=== PATIENT | male | born 1995 | race Caucasian/White ===

== ENCOUNTER 2016-09-10 18:50 | Inpatient (IN) | payer MEDICAID, OTHER ==
--- NOTE | 2016-09-10 19:58 | ED ---
General Adult HPI - General Chief complaint: Psychiatric Symptoms Stated complaint: EPS eval Time Seen by Provider: 09/10/16 19:25 Source: patient, family, police, RN notes reviewed Mode of arrival: ambulatory Limitations: no limitations - History of Present Illness Initial comments: Patient is a pleasant 21-year-old male presenting to the emergency department after making suicidal threats. Patient was in an argument with his mother. Patient made threats to harm himself. Patient also made threats that there may be a house fire. Patient states he never had suicidal or homicidal thoughts. Patient denies actually wanting to harm himself or others. Patient states at times he does have some mild depression. Patient does admit to having anxiety. Mother adds patient has anger problems. Patient reportedly was recently admitted for psychiatric reasons. No physical complaints. - Related Data Home Medications Medication Instructions Recorded Confirmed No Known Home Medications [No 08/21/16 09/10/16 Known Home Medications] Allergies Allergy/AdvReac Type Severity Reaction Status Date / Time No Known Allergies Allergy Verified 09/10/16 20:34 Review of Systems ROS Statement: Those systems with pertinent positive or pertinent negative responses have been documented in the HPI. ROS Other: All systems not noted in ROS Statement are negative. Constitutional: Denies: fever Eyes: Denies: eye pain ENT: Denies: ear pain Respiratory: Denies: cough Cardiovascular: Denies: chest pain Endocrine: Denies: fatigue Gastrointestinal: Denies: abdominal pain Genitourinary: Denies: dysuria Musculoskeletal: Denies: back pain Skin: Denies: rash Psychiatric: Reports: anxiety Past Medical History Past Medical History: No Reported History History of Any Multi-Drug Resistant Organisms: None Reported Past Surgical History: No Surgical Hx Reported Past Psychological History: ADD/ADHD Smoking Status: Never smoker Past Alcohol Use History: None Reported Past Drug Use History: Marijuana Additional Drug Use History / Comment(s): Patient did acid and Karlene prior to admission General Exam Limitations: no limitations General appearance: alert, in no apparent distress Head exam: Present: atraumatic Eye exam: Present: normal appearance Neck exam: Present: normal inspection Respiratory exam: Present: normal lung sounds bilaterally Cardiovascular Exam: Present: regular rate, normal rhythm GI/Abdominal exam: Present: soft. Absent: tenderness Extremities exam: Present: normal inspection Neurological exam: Present: alert Psychiatric exam: Present: normal affect, normal mood Skin exam: Absent: rash Course Vital Signs 09/10/16 18:58 Temperature 99.4 F Pulse Rate 85 Respiratory 20 Rate Blood Pressure 138/87 O2 Sat by Pulse 98 Oximetry Medical Decision Making - Medical Decision Making Patient was seen by mental health services, who will admit. Positive clinical certificate completed. - Lab Data Lab Results 09/10/16 Range/Units 19:30 Urine Opiates Screen Not Detected (NotDetected) Ur Oxycodone Screen Not Detected (NotDetected) Urine Methadone Screen Not Detected (NotDetected) Ur Propoxyphene Screen Not Detected (NotDetected) Ur Barbiturates Screen Not Detected (NotDetected) U Tricyclic Antidepress Not Detected (NotDetected) Ur Phencyclidine Scrn Not Detected (NotDetected) Ur Amphetamines Screen Not Detected (NotDetected) U Methamphetamines Scrn Not Detected (NotDetected) U Benzodiazepines Scrn Not Detected (NotDetected) Urine Cocaine Screen Not Detected (NotDetected) U Marijuana (THC) Screen Detected H (NotDetected) Disposition Clinical Impression: Depression, Suicidal ideation Disposition: TRANSFER TO PSYCH HOSP/UNIT
[2016-09-10] MEDS ORDERED: LORazepam 1 MG TAB PO STA (21:10)
[2016-09-10] MEDS ORDERED: LORazepam 2 MG/ML SYRINGE IM STA (23:56)
[2016-09-10] MEDS ORDERED: ZIPRASIDONE 20 MG VIAL IM STA (23:56)
[2016-09-11] MEDS ORDERED: MAGNESIUM HYDROXIDE 2,400 MG/10 ML CUP PO PRN (00:28)
[2016-09-11] MEDS ORDERED: MAG HYDROX/AL HYDROX/SIMETH 30 ML CUP PO PRN (00:28)
[2016-09-11] MEDS ORDERED: HALOPERIDOL LACTATE 5 MG/ML 1 ML VIAL IM PRN (00:33)
[2016-09-11] MEDS ORDERED: LORazepam 2 MG/ML SYRINGE IM PRN (00:35)
[2016-09-11 01:32] LABS: Appearance,Urine Clear (Clear); Bilirubin,Urine Negative (Negative); Glucose,Urine (UA) Negative (Negative); Ketones,Urine Negative (Negative); Leukocyte Esterase,Urine Negative (Negative); Nitrite,Urine Negative (Negative); Protein,Urine Negative (Negative); Specific Gravity,Urine 1.021 (1.001-1.035); UA Billing (MACRO vs. MICRO) CHEM; Urobilinogen,Urine <2.0 mg/dL (<2.0)
[2016-09-11 11:35] VITALS: BMI 22.6
--- NOTE | 2016-09-11 13:28 | P.HP ---
Psychiatric H&P - . H&P Date: 09/11/16 History & Physical: IDENTIFYING DATA: Mr. Holly is a 23-year-old single male readmitted to the psychiatric unit involuntarily. His mother, Brissa Styles, completed a Petition/Application for Hospitalization. HISTORY OF PRESENT ILLNESS: According to the Petition Mamadou "threatens to commit suicide. Anger outbursts. "I'm going to end my life." He threatens in a roundabout way to start a fire in the house as an electrical or gas fire. I feel he can be a danger to himself and others." I reviewed the medical record, interviewed Mr. Holly and his mother and discussed the history and treatment plan during team meeting. He was angry over this rehospitalization. He provided little information and cooperated minimally with the interview. He denied the allegations in the petition. He denied that he threatened to commit suicide or threatened to start a house fire. He denied the need for inpatient psychiatric treatment rate and requested because he has a community mental health appointment today. We discharged him on 08/26/2016 with the diagnoses of cannabis use disorder, which hallucinogen abuse, methamphetamine abuse, MDMA abuse and paranoia due to the drug abuse. His presentation to the prior admission was also involuntary where his mother was concerned about erratic behavior and threats to himself or others. He signed a deferral during this hospitalization. He did not demonstrate paranoia, agitation or threatening behavior during this hospitalization. I spoke to his mother. Brissa stated that he went to his father's house after discharge "for a day and a half" then return to her home. He stated that he was talking about being depressed and made statements such as he "could commit suicide" and nobody would miss him. She stated that he asked to do laundry at her home. She told him that he couldn't because the dryer was broken. He then talked about an electrical fire and a gas fire. He made a statement such as "this is my house and your house maybe we could have an electrical fire" ... "No one cares about me and I will kill myself." He talked about selling his "race car". He complained that his mind was racing. She stated that there was an incident where he went to the gas station, paid for gas the left the gas station without filling the gas tank. She stated that he' s been driving recklessly and speeding. One of his friends called her and complained that he was following him around the house while the friend was talking a telephone because he thought the friend was talking to the police. Mamadou's father complained that when he was at his house Mamadou could not concentrate. He was also talking about the police, the BAL and undercover. He had anger outbursts where he slammed the doors and screamed. She stated that he was always "odd" but has been worse since he started using drugs. He stated he is "not talking right" and becomes extremely angry when she tries to "talk to him". She stated he also had the heater vents in his bedroom shut tight because he thinks that people are spying on him throught the vents. He also told his mother that he believes his father is a "snitch". He denied the use of alcohol or drugs with the exception of marijuana (UDS was positive for cannabinoids). He denied experiencing auditory or visual hallucinations. He denied feeling depressed or having thoughts of or suicide. He alleged that his mother misinterpreted his statements. He denied that he had threatened suicide or threatened to set a house fire. He attributed his anger outbursts to his mother's behavior alleging that she is intrusive. PAST PSYCHIATRIC HISTORY: This is his second psychiatric hospitalization. [facility] and he has his initial psychiatric evaluation scheduled 09/11/2016. He was diagnosed with ADHD when he was a child and was treated with Strattera from approximately age [age] then Concerta from 10 until 15 or 16. He denied other contact with the mental health system. However, his mother stated that he received "counseling services" twice. The first was through [facility] about 6 years ago for problems with "incorrigibility" and anger issues. He was in counseling for about one year. The second episode was through a program called [facility]. His mother called the police when she discovered inappropriate sexual contact between Mamadou and his sister. He was 17 at the time but his sister was 13. She arranged for both Mamadou and his sister to have counseling services. He was in counseling for less than one year. CPS was not involved. PAST MEDICAL HISTORY: He has no history of medical illnesses. ALLERGIES: NO KNOWN DRUG ALLERGIES. SUBSTANCE USE HISTORY: He has a history of abuse of multiple drugs. He started smoking marijuana when he was about 16 years old. He stated that he has smoked "a lot of pot." He began using pot frequently around age 18. He smoked pot on a daily basis alleging that the marijuana produced a calming effect. He began using LSD "about 1 or 2 years ago" and he uses it sporadically. He has used MDMA twice; he last insufflated MDMA, Friday prior to admission. T He has used Adderall occasionally. He is using heroin twice (insufflation no IV injection). He began using methamphetamine about 1 or 2 years ago. His last use about 1 month ago. He was smoking methamphetamine. He has used Vicodin in the past both orally and intranasally. He was tried "mushrooms" couple times. He described a social pattern of alcohol use. He did not drink over the last week. The last time he had 5 or more drinks was "a couple weeks ago". He denied daily use of alcohol. He has not been involved in a substance abuse treatment program. Tobacco use:He states he smokes intermittently usually about 1 pack a week. FAMILY PSYCHIATRIC/SUBSTANCE USE HISTORY: According to his mother a maternal aunt and paternal grandmother have a history of schizophrenia. His father has had problems with drugs and alcohol. LEGAL HISTORY: He denied history of legal problems. SOCIAL HISTORY: He was born and raised in [facility]. He left high school in 12th grade and began working. He stated that he had fallen behind in credits because he has missed school. He last attended a "last chance" high school. He did not receive his GED. He is single and has no children. He has one younger sister. His parents are . He lives with his mother and his younger sister. MENTAL STATUS EXAM: He presented as a restless, irritable and angry 21-year-old male who looked younger than his stated age. He maintained eye contact and appeared to attend to interview. He had no distinguishing features or prominent physical abnormalities. He had an angry facial expression. He was alert and oriented to person, place and time. He was restless and agitated but able to sit during the interview. At no abnormal involuntary movements. His speech was spontaneous with increased rate and volume. He had no articulation difficulties. His affect was irritable and angry and at times intense and appropriate. He denied suicidal ideation or wishes. He denied homicidal ideation. He expresses feelings of hopelessness and helplessness regarding this involuntary hospitalization. He denied obsessions or ruminations. He denied that he is concerned about the BAL, FBI or the police. He denied ideas of reference. He was guarded and suspicious but did not express paranoid ideation during the interview. His thinking was concrete and associations were coherent. He did not demonstrate clang associations perseveration or neologisms. He denied hallucinations and did not appear to responding to internal stimuli. Global impression of intellect is average. He has no insight or understanding of her need for mental health treatment or the issues/ problems that led to this rehospitalization. STRENGTHS: Good physical health, supportive family, stable housing. WEAKNESSES: Substance use, new-onset of mental illness. IMPRESSION: He is a 21-year-old male who was readmitted to the unit with angry outbursts, paranoia, recurrence of delusional beliefs regarding legal authorities, threats of suicide and agitation. He was irritable and angry during our interview but did not expressed paranoia or delusional beliefs. The current admission does not appear related to the recent use of psychostimulants , MDMA or hallucinogenics. I suspect his presenting with a new onset of a mental illness that may include a primary mood disorder and/or a schizophrenia. PRINCIPLE DIAGNOSIS: Psychotic disorder unspecified, rule out schizophreniform disorder, rule out schizophrenia, rule out bipolar disorder, cannabis use disorder, hallucinogen use disorder. 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 Discuss a trial of an antipsychotic medication and try to obtain consent for a trial. If he refuses we'll begin an antipsychotic medication if we obtain the involuntary treatment in order. Haloperidol 5 mg by mouth/IM every 4 hours when necessary for agitation and/or lorazepam 1 mg by mouth/IM every 4 hours for agitation. Evaluate clinical status and response to treatment on a daily basis. Encourage participation in therapeutic groups and activities. Allergies Allergy/AdvReac Type Severity Reaction Status Date / Time No Known Allergies Allergy Verified 09/11/16 01:55 Vital Signs Temp 98.0 F 09/11/16 00:07 Pulse 68 09/11/16 00:07 Resp 18 09/11/16 00:07 BP 127/74 09/11/16 00:07 Pulse Ox 97 09/11/16 00:07 Intake & Output 09/10/16 09/11/16 09/11/16 18:59 06:59 18:59 Weight 71.441 kg Laboratory Last Values Urine Color Yellow 09/10/16 19:30 Urine Appearance Clear (Clear) 09/10/16 19:30 Urine pH 6.0 (5.0-8.0) 09/10/16 19:30 Ur Specific Macy 1.021 (1.001-1.035) 09/10/16 19:30 Urine Protein Negative (Negative) 09/10/16 19:30 Urine Glucose (UA) Negative (Negative) 09/10/16 19:30 Urine Ketones Negative (Negative) 09/10/16 19:30 Urine Blood Negative (Negative) 09/10/16 19:30 Urine Nitrate Negative (Negative) 09/10/16 19:30 Urine Bilirubin Negative (Negative) 09/10/16 19:30 Urine Urobilinogen <2.0 mg/dL (<2.0) 09/10/16 19:30 Ur Leukocyte Esterase Negative (Negative) 09/10/16 19:30 Urine Opiates Screen Not Detected (NotDetected) 09/10/16 19:30 Ur Oxycodone Screen Not Detected (NotDetected) 09/10/16 19:30 Urine Methadone Screen Not Detected (NotDetected) 09/10/16 19:30 Ur Propoxyphene Screen Not Detected (NotDetected) 09/10/16 19:30 Ur Barbiturates Screen Not Detected (NotDetected) 09/10/16 19:30 U Tricyclic Antidepress Not Detected (NotDetected) 09/10/16 19:30 Ur Phencyclidine Scrn Not Detected (NotDetected) 09/10/16 19:30 Ur Amphetamines Screen Not Detected (NotDetected) 09/10/16 19:30 U Methamphetamines Scrn Not Detected (NotDetected) 09/10/16 19:30 U Benzodiazepines Scrn Not Detected (NotDetected) 09/10/16 19:30 Urine Cocaine Screen Not Detected (NotDetected) 09/10/16 19:30 U Marijuana (THC) Screen Detected (NotDetected) H 09/10/16 19:30 09/11/16 10:25 09/11/16 11:50 09/11/16 13:22
[2016-09-11] MEDS: LORazepam 1 MG TAB PO PRN (19:37)
[2016-09-11] MEDS: HALOPERIDOL 5 MG TAB PO PRN (20:58)
[2016-09-12] MEDS: LORazepam 1 MG TAB PO PRN (11:35)
--- NOTE | 2016-09-12 11:40 | P.PN ---
Progress Note - Text CLINICAL PROBLEMS: He is a 21-year-old male readmitted to the unit involuntarily with agitation, anger outbursts and paranoia. 24 HOUR EVENTS: He received 5 mg of Haldol 2057 and lorazepam 1 mg by mouth at 193 yesterday for agitation. EXAMINATION: He presented as a restless and irritable 21-year-old male. He would not come into my office for the interview. He came to my door several times with various complaints. The first was the belief that "someone" had taken copies of his records from his room. He then complained to the patient compliance representative dealer that we are sharing information about his medical care with his mother. He made eye contact and appeared to attend during our conversations. He had a distressed facial expression. He was agitation but demonstrated no abnormal involuntary movements. His speech was spontaneous with increased rate and volume. His affect was irritable, angry and anxious. He denied suicidal ideation or wishes. He denied homicidal ideation. He expressed depressive cognitions including hopelessness,, hopelessness and worthlessness. He ruminated about this hospitalization, his medical records, his medical treatment and the pending involuntary hearing. His thinking was concrete but his associations appeared logical. He denied hallucinations and did not appear to be responding to internal stimuli. He has no sight or understanding of his illness. PERTINENT DATA: We have a probate hearing things scheduled for September 17 at 1: 30 PM. ASSESSMENT: He continued show restlessness, irritability, paranoia and periods of increased anger and anger dyscontrol. His symptom presentation appears more consistent with a mood disorder than a Primary Psychotic disorder. PLAN: Continue Haldol 5 mg by mouth/IM every 4 hours when necessary for agitation as well as lorazepam 1 mg by mouth/IM every 4 hours when necessary for agitation. Continue discuss treatment with an antipsychotic/mood stabilizer such as Abilify. Begin the antipsychotic/mood stabilizer if he consents or if we obtain an involuntary treatment order. Continue 15 minute checks. Encourage participation in therapeutic groups and activities. Evaluate clinical status and response to treatment on a daily basis.
[2016-09-12] MEDS: HALOPERIDOL 5 MG TAB PO PRN (16:03)
[2016-09-13] MEDS: LORazepam 1 MG TAB PO PRN ×2 (08:43→21:46)
[2016-09-13] MEDS: HALOPERIDOL 5 MG TAB PO PRN ×2 (08:43→21:46)
--- NOTE | 2016-09-13 12:01 | P.PN ---
Progress Note - Text CLINICAL PROBLEMS: He is a 21-year-old single male who presented to unit involuntarily. His mother described agitation, anger dyscontrol, suspiciousness and paranoia. His history is significant for an adolescent onset of behavioral problems. 24 HOUR EVENTS: He was disruptive in group yesterday and responded poorly to redirection by the group therapist. He was irritable, angry and preoccupied about this hospitalization. He received haloperidol 5 mg and risperidone 1 mg by mouth this morning for agitation EXAMINATION: He came to my office several times today with various complaints. He continues to deny the need for psychiatric treatment. He believes that his mother fabricated the allegations in the petition to maintain controlled over him.. He denies all the allegations of the petition. He was irritable and minimally cooperative. Heis only able to remain seated for a few minutes. His thinking was concrete but his associations appeared coherent. He has no insight or understanding as to the reason for this admission. He continues to deny the need for mental health treatment including psychotropic medications. PERTINENT DATA: His probation hearing is scheduled for 09/17/2015 ASSESSMENT: He continues to be irritable, angry and disruptive. He shows no insight or understanding of the reason for his presentation and is denying the allegations in the petition and denied the behaviors that led to this admission PLAN: Continued inpatient psychiatric hospitalization at least until the probate hearing on 09/17/2015, continue to discuss treatment with a mood stabilizing medication such as Abilify, continue haloperidol 5 mg by mouth/IM every 4 hours when necessary for agitation and/or lorazepam 1 mg by mouth/IM every 4 hours for agitation, continue to encourage appropriate participation in therapeutic groups and activities, evaluate clinical status and response to treatment on a daily basis.
[2016-09-13] MEDS ORDERED: BENZTROPINE MESYLATE 1 MG TAB PO PRN (23:03)
[2016-09-13] MEDS ORDERED: BENZTROPINE 2 MG/2 ML AMP IM PRN (23:03)
[2016-09-14] MEDS: LORazepam 1 MG TAB PO PRN ×2 (18:26→22:30)
--- NOTE | 2016-09-14 20:38 | P.PN ---
Progress Note - Text Interval history: Patient seen in cross coverage today for Dr. Hull. He had a family visit with his mom which seemed to go well. Today seems like a better day for him. He was having some difficulty with stiffness thought to be related to the Haldol with some relief with Cogentin. He has not had any Haldol today. Says he doesn't really notice much difference with the Haldol or the Ativan. He feels like if anything the Ativan makes him more alert. He does describe having had a trial of Abilify in the past and he had decreased appetite and made him very tired. He does show some interest upon further discussion with Seroquel. Mental status exam: He is alert and cooperative with the interview. He had just previously taken a shower. He mood overall seems to be improved. He denies any thoughts of harm to self or others. He denies any paranoid thoughts. He denies any hallucinations. He does not appear to responding to any internal stimuli. He does not show any agitation. His thought processes are organized. Plan: He is currently on Haldol and Ativan when necessary. We will further review his chart, we'll continue to discuss the possibility of starting Seroquel , as he has had previous trial of Abilify with side effects. Continue to cover for Dr. Hull through the weekend.
[2016-09-15] MEDS: LORazepam 1 MG TAB PO PRN ×3 (09:20→20:19)
[2016-09-15] MEDS: ACETAMINOPHEN TAB 325 MG TAB PO PRN ×2 (09:58→20:32)
--- NOTE | 2016-09-15 16:33 | P.PN ---
Progress Note - Text Interval history: Patient is seen in cross coverage today for Dr. Hull. He reports that he slept well last night. He does again relay that he had side effects with Abilify in the past it made him too sleepy. He is agreeable to a trial of Seroquel. He does not complain of any adverse psychotropic medication side effects. Mental status exam: He is alert and cooperative with the interview. His speech is fluent, not rapid or pressured. Thought processes are organized. He describes his mood is doing stable today. He denies any thoughts of harm to self or others. He denies any paranoid thoughts. He does not verbalize any hallucinations. He does not show any agitation. Plan: We will initiate low dose Seroquel 50 mg at bedtime and monitor closely for any side effects and monitor his response. Dr. Hull to resume care this patient starting tomorrow. Haldol at this time has been discontinued due to concern of extrapyramidal symptoms.
[2016-09-15] MEDS: QUEtiapine 50 MG TAB PO SCH (20:19)
--- NOTE | 2016-09-16 16:24 | P.PN ---
Progress Note - Text CLINICAL PROBLEMS: His 21-year-old single male who has a history of childhood onset conduct disorder and ADHD. He presented to unit involuntarily with a history of anger dyscontrol, agitation, threatening behavior and paranoia. 24 HOUR EVENTS: He developed neck stiffness yesterday that responded to an oral dose of Cogentin. Dr. Villela discussed alternatives to haloperidol and Kellen agreed to a trial of Seroquel. He reported improved sleep or Seroquel but asked for for Xanax for "anxiety". I declined his request due to his history of substance use problems. EXAMINATION: He presented as a tall casually dressed young male who was pleasant on approach. He maintained eye contact and attended to the interview. He had a bright but blunted facial expression. He approached me on several occasions during the day with various complaints. He remains angry over the involuntary hospitalization but alleges that he has "forgiven" his mother first actions. He now does not wish to live with his father and plans to live with his mother after discharge. He was unable to articulate plan to address conflict in a manner that would not escalate to where his mother becomes frustrated and calls the police. His speech was spontaneous with normal rate, rhythm and volume. His affect was labile. He denied suicidal ideation or wishes. He denied homicidal ideation. He did not express paranoid ideation. His thinking was concrete but his associations were coherent and logical. He denied hallucinations. PERTINENT DATA: He requested and received 1 mg of lorazepam at 1023 this morning for complaints of anxiety. ASSESSMENT: He continues to have mood lability, impulsiveness and periods of uncontrolled anger. There is no evidence of suicidality, homicidality, paranoia or other psychotic symptoms. PLAN: He has a probate hearing on 09/17/2016. We were asked for a 60/90 day combined treatment order. Continue Seroquel 50 mg at bedtime and titrated according to tolerance and side effects. Defer prescription of narcotic medications due to history of abuse. Continue to encourage participation in therapeutic groups and activities. Evaluate clinical status and response to treatment on a daily basis.
[2016-09-16] MEDS: QUEtiapine 50 MG TAB PO SCH (21:32)
[2016-09-17] MEDS: LORazepam 1 MG TAB PO PRN (08:21)
[2016-09-17] MEDS ORDERED: TETRAHYDROZOLINE 0.05% OPHTH DROPS 15 ML BTL BOTH EYES PRN (12:54)
[2016-09-17] MEDS ORDERED: QUEtiapine 25 MG TAB PO PRN (16:13)
--- NOTE | 2016-09-17 16:17 | P.PN ---
Progress Note - Text CLINICAL PROBLEMS: Mamadou was anxious regarding the probate hearing later today. He into my office several times today with various complaints and concerns. He is preoccupied about discharge and wishes to leave after the probate hearing. He asked me to discontinue Ativan and tentatively agreed to take a low dose of quetiapine for anxiety or agitation. 24 HOUR EVENTS: He slept only 2 hours last night. He has not displayed agitation, aggression or disruptive behavior EXAMINATION: He presented as a tall casually groomed young male who was pleasant on approach. He maintained eye contact and attended to the interview. He had a bright facial expression. He showed no abnormality of psychomotor activity. His speech was spontaneous with normal rate, rhythm and volume. His affect was anxious but stable and appropriate. He denied suicidal ideation or wishes. He denied ideas reference and did not express paranoid ideation. His thinking is concrete but his associations are coherent and goal directed. She denied hallucinations and did not appear to responding to internal stimuli. PERTINENT DATA: He had a probate hearing this afternoon. I requested a 60/90 day treatment order ASSESSMENT: She is much improved from admission with marked decrease of irritability, agitation and anger. He is denying side effects to the 50 mg dose of quetiapine but is reluctant regarding further increases. PLAN: Continue Seroquel 50 mg at bedtime, discontinue oral lorazepam and prescribed Seroquel 25 mg by mouth twice a day when necessary for agitation or anxiety.
[2016-09-17] MEDS: ACETAMINOPHEN TAB 325 MG TAB PO PRN (16:18)
[2016-09-17] MEDS: QUEtiapine 50 MG TAB PO SCH (20:20)
[2016-09-18] MEDS ORDERED: QUEtiapine 100 MG TAB PO SCH (15:23)
--- NOTE | 2016-09-18 15:30 | P.PN ---
Progress Note - Text CLINICAL PROBLEMS: He had a probate hearing on 09/17/2016 and received a 60/90 day combine treatment order. He presented to the unit involuntarily with loss of control of her anger and behavioral dyscontrol. He came to my office this morning demanding to be discharged. He continued to maintain there is no reason for him to be hospitalized. He alleged that his mother "lied" on the petition. He inquired about a referral for a medical marijuana card because he wished to have a "natural" treatment rather than take the prescribed psychiatric medications. He was evasive about continuing to take prescribed psychotropic medications. However, he assured me that he would follow-up with [facility]. He accuses "us" of interfering with his treatment because the day of admission he had an appointment at [facility]. When I would not agree to an immediate discharge he asked how he can have "another doctor". He became increasingly agitated and angry when I declined his quest to be discharged. His anger increased to where I felt uncomfortable being alone with him in my office and asked him to leave. He placed his foot in the doorway so that I could not close to door. 24 HOUR EVENTS: He slept 4 hours last night EXAMINATION: He presented as a casually groomed tall young male who was initially pleasant on approach. He became increasingly demanding and hostile to where I ended the interview. His facial expression change with his affect. He showed no abnormality of psychomotor behavior. His speech was rapid. His affect was labile, intense and appropriate. He denied suicidal ideation, wishes or homicidal ideation. He perseverated on discharge and the need for use of marijuana. His thinking was concrete and perseverative. He denied hallucinations and did not receive her to be responding to internal stimuli. PERTINENT DATA: He did not require when necessary quetiapine over the last 24 hours. ASSESSMENT: He continues to be labile, oppositional, irritable, and demanding. PLAN: He is not appropriate for discharge at this time. Increase Seroquel to 100 mg at bedtime, continue Seroquel 25 5 mg by mouth twice a day when necessary for agitation or anxiety, evaluate his clinical status response to treatment on a daily basis, encourage participation in therapeutic groups and activities.
[2016-09-18] MEDS: ACETAMINOPHEN TAB 325 MG TAB PO PRN (21:14)
[2016-09-19 07:02] VITALS: RESP 12; TEMP 97.5
[2016-09-19] MEDS: ACETAMINOPHEN TAB 325 MG TAB PO PRN ×2 (09:22→21:01)
--- NOTE | 2016-09-19 17:11 | P.PN ---
Progress Note - Text CLINICAL PROBLEMS: He is a 21-year-old man who has a history of conduct disorder and ADHD as a child. This is his second psychiatric hospitalization his adult; the first was related to abuse of hallucinogens. He presented with irritability, oppositional behavior and purported dresses suicide. He received a 60/90 day combined treatment order and 09/17/2016. 24 HOUR EVENTS: He slept 4 hours last night. He denied side effects to the increased dose of Seroquel. EXAMINATION: He presented as an irritable, oppositional and demanding 21-year- old male. He repeatedly requested to be discharged and demanded an explanation as to why he would not be discharged today. When I first declined his request (to be discharged) he stood up and walked out of the interview room. He then demanded that we speak in the hallways. When a nurses aid walked by he asked the aid to witness the conversation. He then accused this group underwriter of wanting to talk in the hallways. When we returned to the interview room he was irritable and oppositional. He demanded to know his diagnosis and when I explained the diagnoses he interrupted. He denied that he has a history of drug use. He then would not answer further questions and demanded that I speak about my drug use. He interrupted me and talked over my replies to his questions. PERTINENT DATA: He participates minimally in therapeutic groups and activities. Therapy staff report that he is restless, irritable and has difficulty focusing. ASSESSMENT: He is compliant with prescribed medication but is not sleeping more than 4 hours per night. His behavior appears more consistent with a chronic oppositional defiant disorder rather than a mood variant. PLAN: Increase Seroquel to 200 mg at bedtime. If he tolerates the increase, consider discharge home with [facility] aftercare.
[2016-09-19] MEDS ORDERED: QUEtiapine 200 MG TAB PO SCH (21:00)
[2016-09-20 07:07] VITALS: BP 131/67; PULSE 51
[2016-09-20] MEDS: ACETAMINOPHEN TAB 325 MG TAB PO PRN (13:03)
--- NOTE | 2016-09-20 15:01 | P.DS ---
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 Holly is a 23-year-old single male readmitted to the psychiatric unit involuntarily. His mother, Brissa Styles, completed a Petition/Application for Hospitalization. HISTORY OF PRESENT ILLNESS: According to the Petition Mamadou "threatens to commit suicide. Anger outbursts. "I'm going to end my life." He threatens in a roundabout way to start a fire in the house as an electrical or gas fire. I feel he can be a danger to himself and others." I reviewed the medical record, interviewed Mr. Holly and his mother and discussed the history and treatment plan during team meeting. He was angry over this rehospitalization. He provided little information and cooperated minimally with the interview. He denied the allegations in the petition. He denied that he threatened to commit suicide or threatened to start a house fire. He denied the need for inpatient psychiatric treatment rate and requested because he has a community mental health appointment today. We discharged him on 08/26/2016 with the diagnoses of cannabis use disorder, which hallucinogen abuse, methamphetamine abuse, MDMA abuse and paranoia due to the drug abuse. His presentation to the prior admission was also involuntary where his mother was concerned about erratic behavior and threats to himself or others. He signed a deferral during this hospitalization. He did not demonstrate paranoia, agitation or threatening behavior during this hospitalization. I spoke to his mother. Brissa stated that he went to his father's house after discharge "for a day and a half" then return to her home. He stated that he was talking about being depressed and made statements such as he "could commit suicide" and nobody would miss him. She stated that he asked to do laundry at her home. She told him that he couldn't because the dryer was broken. He then talked about an electrical fire and a gas fire. He made a statement such as "this is my house and your house maybe we could have an electrical fire" ... "No one cares about me and I will kill myself." He talked about selling his "race car". He complained that his mind was racing. She stated that there was an incident where he went to the gas station, paid for gas the left the gas station without filling the gas tank. She stated that he' s been driving recklessly and speeding. One of his friends called her and complained that he was following him around the house while the friend was talking a telephone because he thought the friend was talking to the police. aMmadou's father complained that when he was at his house Mamadou could not concentrate. He was also talking about the police, the BAL and undercover. He had anger outbursts where he slammed the doors and screamed. She stated that he was always "odd" but has been worse since he started using drugs. He stated he is "not talking right" and becomes extremely angry when she tries to "talk to him". She stated he also had the heater vents in his bedroom shut tight because he thinks that people are spying on him throught the vents. He also told his mother that he believes his father is a "snitch". He denied the use of alcohol or drugs with the exception of marijuana (UDS was positive for cannabinoids). He denied experiencing auditory or visual hallucinations. He denied feeling depressed or having thoughts of or suicide. He alleged that his mother misinterpreted his statements. He denied that he had threatened suicide or threatened to set a house fire. He attributed his anger outbursts to his mother's behavior alleging that she is intrusive. PAST PSYCHIATRIC HISTORY: This is his second psychiatric hospitalization. We referred him to [facility] for aftercare and he has his initial psychiatric evaluation scheduled 09/11/2016. He was diagnosed with ADHD when he was a child and was treated with Strattera from approximately age [age] then Concerta from 10 until 15 or 16. He denied other contact with the mental health system. However, his mother stated that he received "counseling services" twice. The first was through [facility] about 6 years ago for problems with "incorrigibility" and anger issues. He was in counseling for about one year. The second episode was through a program called [facility]. His mother called the police when she discovered inappropriate sexual contact between Mamadou and his sister. He was 17 at the time but his sister was 13. She arranged for both Mamadou and his sister to have counseling services. He was in counseling for less than one year. CPS was not involved. HOSPITAL COURSE: We admitted him to the psychiatric unit under care of this law writer. We provided a biopsychosocial assessment. The oracle adf consultant absorption plant operator helper completed the physical examination and medical history. He would not consent to a voluntary admission or take a psychotropic medications for his agitation and aggressive behavior. We obtained a 60/90 day combined involuntary treatment order on 09/17/2016 and started Seroquel 50 mg at bedtime. He participated intermittently in therapeutic groups and activities. He was angry and oppositional during much of the hospitalization. During individual sessions he was angry, demanding and would not engage in a reciprocal conversation. He appeared suspicious that time requesting that staff be present as witnesses during one-to-one meetings. We increased Seroquel at 200 mg at bedtime and observed a slight decrease in his anger and an improvement in his sleep. However, he made it clear that he has no plans to continue with this medication after discharge. He inquired about our support for obtaining a "medical marijuana card ". He denied a history of substance abuse and accuse us of fabricating this story. At the time of discharge she denied thoughts of or suicide. He overtly agreed to follow-up with [facility]. He will live with either his mother or father after discharge. Patient Condition at Discharge: Fair Plan - Discharge Summary New Discharge Prescriptions: QUEtiapine [SEROquel] 200 mg PO HS #30 tab Discharge Medication List QUEtiapine [SEROquel] 200 mg PO HS #30 tab 09/20/16 [Rx] [facility] up [facility]Ref[facility] - 09/26/16 2:00 pm (Araseli Guerrero) [facility] [place] [facility] [Outside] - 09/24/16 10:00 am (Shanti Peñaloza) Kip Flowers DO [Primary Care Provider] - 1-2 days Patient Instructions/Handouts: Depression (DC), Suicide Prevention for Adults ( DC) Activity/Diet/Wound Care/Special Instructions: No alcohol or street drugs. Take medication as prescribed. Notify the crisis line or your care provider if symptoms worsen. Crisis line no. . Regular diet. Activity as tolerated. Discharge Disposition: HOME SELF-CARE
== END 2016-09-20 13:34 | disposition home or self-care (01) | DRG 897 ==
LOC: EC 18:50 → 3MHU 23:55
PROVIDERS: ADMIT Psychiatry & Neurology Psychiatry; ATTEND Psychiatry & Neurology Psychiatry
DX: F16.10 Hallucinogen abuse, uncomplicated (principal); R45.851 Suicidal ideations; F32.9 Major depressive disorder, single episode, unspecified; F15.10 Other stimulant abuse, uncomplicated; F12.20 Cannabis dependence, uncomplicated; F41.9 Anxiety disorder, unspecified; F91.3 Oppositional defiant disorder; Z81.8 Family history of other mental and behavioral disorders; Z87.891 Personal history of nicotine dependence
CPT/HCPCS: 80306; 81003; 82075; 96372; 99285

== ENCOUNTER 2017-03-12 14:17 | Inpatient (IN) | payer MEDICAID, OTHER ==
--- NOTE | 2017-03-12 14:56 | ED ---
General Adult HPI - General Chief complaint: Psychiatric Symptoms Stated complaint: mental health Time Seen by Provider: 03/12/17 14:27 Source: patient, EMS, RN notes reviewed Mode of arrival: EMS Limitations: no limitations - History of Present Illness Initial comments: Patient is an agitated 21-year-old male presenting to the emergency department by police and EMS. Patient is agitated. Patient was restrained. Patient has Court order. Patient admits to not taking medication stating and does not work for him. Patient is unclear if he is court ordered to take medication. Patient admits to having problems with his sister. Patient denies suicidal or homicidal thoughts. Patient denies hallucinations. No alcohol or street drug use other than reported medical marijuana. Patient denies any physical complaints. Tetanus immunization is less than 10 years ago. Patient denies any significant injury. - Related Data Home Medications Medication Instructions Recorded Confirmed Paliperidone [Invega] 3 mg PO DAILY 03/12/17 03/12/17 Allergies Allergy/AdvReac Type Severity Reaction Status Date / Time haloperidol [From Haldol] AdvReac Severe Unknown Verified 03/12/17 14:36 Review of Systems ROS Statement: Those systems with pertinent positive or pertinent negative responses have been documented in the HPI. ROS Other: All systems not noted in ROS Statement are negative. Constitutional: Denies: fever Eyes: Denies: eye pain ENT: Denies: ear pain Respiratory: Denies: cough Cardiovascular: Denies: chest pain Endocrine: Denies: fatigue Gastrointestinal: Denies: abdominal pain Genitourinary: Denies: dysuria Musculoskeletal: Denies: back pain Skin: Denies: rash Neurological: Denies: headache Past Medical History Past Medical History: No Reported History History of Any Multi-Drug Resistant Organisms: None Reported Past Surgical History: No Surgical Hx Reported Past Anesthesia/Blood Transfusion Reactions: No Reported Reaction Past Psychological History: ADD/ADHD, Schizophrenia Smoking Status: Never smoker Past Alcohol Use History: None Reported Past Drug Use History: Marijuana General Exam Limitations: no limitations General appearance: alert, in no apparent distress Head exam: Present: atraumatic Eye exam: Present: normal appearance, PERRL ENT exam: Present: normal oropharynx Neck exam: Present: normal inspection Respiratory exam: Present: normal lung sounds bilaterally Cardiovascular Exam: Present: regular rate, normal rhythm GI/Abdominal exam: Present: soft. Absent: tenderness Extremities exam: Present: normal inspection Neurological exam: Present: alert, CN II-XII intact. Absent: motor sensory deficit Psychiatric exam: Present: agitated Skin exam: Present: abrasion Course Vital Signs 03/12/17 03/12/17 14:31 19:57 Temperature 97.3 F L Pulse Rate 101 H 99 Respiratory 18 18 Rate Blood Pressure 168/84 160/80 O2 Sat by Pulse 96 95 Oximetry Procedures - Restraint - Face to Face Restraint Occurrence 1 Patient's Immediate Situation: Endangers self safety, Endangers others' safety, Endangers staff safety, Violent behavior Patient's Reaction to the Intervention: Angry Patient's Medical & Behavioral Condition: Awake, Alert, Follows directions Need to Continue or Terminate Restraint or Seclusion: Continue Face to Face Eval of Restraint Date: 03/12/17 Face to Face Eval of Restraint Time: 14:54 Medical Decision Making - Lab Data Result diagrams: 03/13/17 07:22 03/13/17 07:22 Lab Results 03/12/17 Range/Units 17:00 Urine Opiates Screen Not Detected (NotDetected) Ur Oxycodone Screen Not Detected (NotDetected) Urine Methadone Screen Not Detected (NotDetected) Ur Propoxyphene Screen Not Detected (NotDetected) Ur Barbiturates Screen Not Detected (NotDetected) U Tricyclic Antidepress Not Detected (NotDetected) Ur Phencyclidine Scrn Not Detected (NotDetected) Ur Amphetamines Screen Not Detected (NotDetected) U Methamphetamines Scrn Not Detected (NotDetected) U Benzodiazepines Scrn Not Detected (NotDetected) Urine Cocaine Screen Not Detected (NotDetected) U Marijuana (THC) Screen Detected H (NotDetected) Disposition Clinical Impression: Depression, Psychosis Disposition: TRANSFER TO PSYCH HOSP/UNIT
[2017-03-12] MEDS ORDERED: ZIPRASIDONE 20 MG VIAL IM STA (18:13)
[2017-03-12] MEDS ORDERED: MAGNESIUM HYDROXIDE 2,400 MG/10 ML CUP PO PRN (19:40)
[2017-03-12] MEDS ORDERED: MAG HYDROX/AL HYDROX/SIMETH 30 ML CUP PO PRN (19:40)
[2017-03-12] MEDS ORDERED: ZIPRASIDONE 20 MG VIAL IM PRN (19:40)
[2017-03-13 07:42] LABS: Basophils # (A) 0.1 k/uL (0-0.2); Basophils % (A) 2 %; CHCM 35.3; Eosinophils # (A) 0.3 k/uL (0-0.7); Eosinophils % (A) 4 %; HCT 46.6 % (39.0-53.0); HDW 2.68; HGB 16.6 gm/dL (13.0-17.5); Luc # (Auto) 0.18; Luc % (Auto) 3; Lymphocytes # (A) 1.7 k/uL (1.0-4.8); Lymphocytes % (A) 25 %; MCH 31.4 pg (25.0-35.0); MCHC 35.7 g/dL (31.0-37.0); MCV 88.1 fL (80.0-100.0); Mean Platelet Volume 7.4; Monocytes # (A) 0.6 k/uL (0-1.0); Monocytes % (A) 9 %; Neutrophils % (A) 59 %; RBC 5.28 m/uL (4.30-5.90); RDW 12.7 % (11.5-15.5); WBC 6.8 k/uL (4.0-11.0); WBC (Perox) 6.39
[2017-03-13 08:06] LABS: Anion Gap 10 mmol/L; Blood Urea Nitrogen 19 mg/dL (9-20); Calcium 9.6 mg/dL (8.4-10.2); Carbon Dioxide 27 mmol/L (22-30); Chloride 104 mmol/L (98-107); Glucose 76 mg/dL (74-99); Non-African American GFR(MDRD) >60 (>60 ml/min/1.73 sqM); Potassium 4.4 mmol/L (3.5-5.1); Sodium 141 mmol/L (137-145)
[2017-03-13] MEDS ORDERED: PALIPERIDONE 3 MG TAB.ER.24 PO SCH (09:00)
[2017-03-13] MEDS: ACETAMINOPHEN TAB 325 MG TAB PO PRN ×2 (09:05→20:31)
[2017-03-13] MEDS: NICOTINE 14MG/24HR PATCH TRANSDERM SCH (09:06)
--- NOTE | 2017-03-13 18:14 | HP ---
DATE OF SERVICE: 03/13/2017 IDENTIFYING DATA: This patient is a 21-year-old single male who was admitted to the mental health unit through the emergency room as he was brought in on an existing court order. He was brought into the hospital for aggressiveness and presumed symptoms of psychosis. HISTORY OF PRESENT ILLNESS: The patient has a pre-existing diagnosis with [facility] of schizoaffective disorder. He has been treated on this unit twice before. During his initial hospitalization here, it was presumed that his psychosis was drug-induced. With his second hospitalization there was consideration of a primary psychotic etiology. The patient is currently on a one-year court order for treatment. Apparently he has been noncompliant with his Invega, he thinks for greater than 2 months, but he has some difficulty specifying a time line. The previous psychiatric evaluation notes were reviewed. I reviewed documentation regarding the ER assessment yesterday. Apparently the patient called 911 twice, as the patient demonstrated aggressiveness. They found a machete in his room and they reported that he was appearing paranoid. The patient states today his mood is "just fine." He states he has no problems with sleep, appetite or energy. He states he does not need to be here and he does not need medication. He feels he just needs to take marijuana to be calm and is trying to find a physician to give him his medical card. As we talk more, he does spontaneously discuss his suspiciousness of authorities. He states that they are watching him, as apparently "I am a big bad criminal." He states he should just go to the senior software development engineer's department and register himself and pay $50. He then become angry that he would be forced to pay $50 when he needs that money for other things. In terms of having a machete in his room, he states he is a "connoisseur of knives." He reports that he kept the machete close to him in case somebody broke in or he needed it for self- defense. He was guarded when asked questions about having the machete. He is reporting no suicidal or homicidal thoughts. He reports no recognition of being irritable yesterday. He states there was a verbal altercation with his sister, as he felt she was keeping his property in the trunk of his mother's car inappropriately and he wanted it. He states he does listen to music and sat down calmly, and to his surprise the police arrived at the home. It is unclear if he has had hypomanic or manic episodes. He is endorsing no depressive symptoms at this time. He reports no access to firearms. PAST PSYCHIATRIC HISTORY: This is this third psychiatric admission. The first was in August of 2016 and the second was in September of 2016, both under the care of Dr. Hull. He endorses no history of suicide attempts. He was placed on Seroquel, and this was changed to Invega. He was only on 3 mg, and this was being used orally despite having a court order for treatment. He had previously worked with [employer]. He admits that he has missed some appointments, as he has arrived late to [facility]. PAST MEDICAL HISTORY: None reported. ALLERGIES: NO KNOWN DRUG ALLERGIES. CHEMICAL DEPENDENCY HISTORY: He reports he uses marijuana regularly. It was positive in his urine drug screen. He has a history of intermittently using LSD , ecstasy, Adderall, heroin, Gotham, methamphetamine and mushrooms sporadically. He reports no recent alcohol use but previously described his use as being social. He has never been placed in residential treatment for chemical dependency reasons. Marijuana started at age 16. FAMILY PSYCHIATRIC HISTORY: A maternal aunt and paternal grandmother were known to have schizophrenia. No suicides in the family. FAMILY CHEMICAL DEPENDENCY HISTORY: His father was known to have an alcohol and illicit drug use issue. SOCIAL HISTORY: The patient is 21 years old. He is single. He has no children. He resides with his mother and younger sister. He went as far as 12th grade but did not graduate. No history of experience. He has worked numerous jobs on a short-term basis. He has no employment at this time; no income. He was originally born and raised in the [facility]. LEGAL HISTORY: No history of arrests. ABUSE HISTORY: None reported. MENTAL STATUS EXAM: The patient is a male appearing his stated age. He is seated calmly. He is dressed in his own clothing. Eye contact was appropriate. He does have spontaneous speech. He does answer questions. He reports his mood is "just fine." Affect is blunted. He endorses no auditory or visual hallucinations, but he does endorse paranoid and persecutory thoughts, mainly focusing on law enforcement. He endorses a general sense of being unsafe and feels that at times he is persecuted by family members. He reports no suicidal or homicidal ideation. He reports no thought or intent of harming family members. He demonstrates no verbal or physical aggressiveness during the session. He was redirectable. He does become more agitated when discussing the need for medication and why he was admitted, but I am able to direct him away from that to another topic when needed. He is oriented to person, place and dates. He is able to names the days of the week. Thought process could be tangential at times. There was no flight of ideas or loose associations. STRENGTHS: Housing, family support. WEAKNESSES: Medication noncompliance, use of marijuana. IMPRESSIONS: 1. Psychosis, unspecified. Rule out schizophrenia. Rule out schizoaffective disorder, cannabis use disorder. 2. Lack of income. 3. Noncompliance with medication. PLAN: The patient has been admitted to the mental health unit on an existing treatment order. We reviewed his presenting symptoms. We will continue the Invega but will titrate to 6 mg daily. We will watch for clinical effect and will consider initiating Invega Sustenna. He will be seen by his primary care physician for a routine history and physical exam. Vital signs reviewed. Lab results reviewed. Social Work will meet with the patient to complete a psychosocial assessment. We will involve family in his treatment and discharge planning as he will allow. We will provide reality orientation when possible He is encouraged to participate in the milieu. SHARRON
--- NOTE | 2017-03-13 19:02 | P.CONS ---
History of Present Illness - Reason for Consult Consult date: 03/13/17 Medical management in a patient admitted to the psych floor - History of Present Illness Is a 21-year-old gentleman that is admitted to the inpatient psych unit after failing to take his medication. Patient has a court petition Patient denies having any headaches blurry vision nausea vomiting chest pain difficulty breathing abdominal pain diarrhea urinary urgency or frequency Patient has having any focal motor or sensory deficits denies using any illicit drugs in the recent times States that the he is medically clear and he would like to go home Denies having any suicidal or homicidal ideations apparently had to be restrained overnight Review of Systems All systems: negative (Noted in HPI) Past Medical History Past Medical History: No Reported History History of Any Multi-Drug Resistant Organisms: None Reported Past Surgical History: No Surgical Hx Reported Past Anesthesia/Blood Transfusion Reactions: No Reported Reaction Past Psychological History: ADD/ADHD, Schizophrenia Smoking Status: Never smoker Past Alcohol Use History: None Reported Past Drug Use History: Marijuana Medications and Allergies Home Medications Medication Instructions Recorded Confirmed Type Paliperidone [Invega] 3 mg PO DAILY 03/12/17 03/12/17 History Allergies Allergy/AdvReac Type Severity Reaction Status Date / Time haloperidol [From Haldol] AdvReac Severe Unknown Verified 03/12/17 14:36 Physical Exam Vitals: Vital Signs Temp Pulse Pulse Pulse Resp BP BP 03/13/17 11:06 62 18 03/12/17 22:44 96.7 F L 68 16 118/58 03/12/17 19:57 97.3 F L 99 18 160/80 BP Pulse Ox 03/13/17 11:06 133/72 03/12/17 22:44 97 03/12/17 19:57 95 Physical exam Gen. appearance oriented 3 in no distress Neck is supple no JVD Lungs good air entry clear to auscultation no rhonchi or wheezing Heart S1-S2 heard regular rate and rhythm no murmurs appreciated Abdomen is soft nontender no organomegaly bowel sounds are intact Neurologically cranial nerves II-12 grossly intact no focal motor or sensory deficits noted Skin no abnormalities appreciated Results CBC & Chem 7: 03/13/17 07:22 03/13/17 07:22 Assessment and Plan Plan: #1 schizophrenia noncompliant with medications Plan Thank you for the consultation patient is medically stable no further investigations are recommended We'll follow patient intermittently with you please call with any questions or concerns
[2017-03-14] MEDS: PALIPERIDONE 6 MG TAB.ER.24 PO SCH (09:37)
[2017-03-14] MEDS: NICOTINE 14MG/24HR PATCH TRANSDERM SCH (09:37)
--- NOTE | 2017-03-14 09:58 | P.PN ---
Progress Note - Text Interval history: The patient is found in the hallway he follows me to an interview room. He reports his mood is fine. He inquires as to when he can be discharged. He states that if I talk to any of his friends they will state he is doing fine. We discussed that we titrated the Invega to 6 mg daily and he is agreeable at this time. He reports attending groups he states he ate breakfast this morning. He is endorsing no symptoms. Mental status exam: The patient is alert he stressors unclothing eye contact is appropriate. He reports his mood is "fine". Affect is constricted. He is endorsing no auditory or visual hallucinations he endorses no specific delusions. It is still evident that he continues to experience paranoid persecutory thoughts. He continues to lack insight into his symptoms of psychosis and how they have resulted in this hospitalization. He reports no suicidal or homicidal ideation. He is able to remain seated in the chair he demonstrates no verbal or physical aggressiveness. He is oriented to person place and date. He has spontaneous speech that is nonpressured. There is some mild disorganization of thought at times there is no flight of ideas or loose associations. Plan: The patient will continue on the invega 6 mg daily. We will continue to monitor him for safety. We will look for and attenuation of his psychosis prior to discharge. Vital signs reviewed. He is encouraged to participate in the milieu. I expect he may be appropriate for discharge sometime next week depending on his clinical progress.
[2017-03-15] MEDS: PALIPERIDONE 6 MG TAB.ER.24 PO SCH (12:35)
[2017-03-15] MEDS: NICOTINE 14MG/24HR PATCH TRANSDERM SCH (12:35)
[2017-03-15] MEDS: LORazepam 1 MG TAB PO PRN (12:54)
--- NOTE | 2017-03-15 13:58 | P.PN ---
Progress Note - Text Weekend coverage for Dr. Quinn. INTERVERAL HISTORY: Review of record, discussed with nursing staff, met with patient. Patient seated in the hallway asked him if he would come to the office, "I was can ask if you again and meet with me". Patient reports that he is doing fine,then begins to go into a monologue that Invega has never helped him, that he took it for 30 days and wants to see if there is anything else that he can take. Goes on w/o pause to state that he has ADHD, his whole life,stopped taking med, concerta, instead using weed that seemed to help with his ADHD. Now wants Vivyanse. MENTAL STATUS EXAM: Alert and oriented 3, pleasant, cooperative. Speech normal volume, slight increased rate and although not pressured speech, there was a push. Preoccupied about medication for ADHD, minimizing current medications. There is no auditory or visual hallucinations reported, nor was there any evidence that he was responding to internal stimuli. Mood neutral, affect constricted. No report of delusions. No suicidal or homicidal ideation. Plan: continue with inpatient psychiatric hospitalization, for safety and treatment purposes. Suicide precautions and every 15 minute checks. Continue current medication. Monitor for clinical progress
[2017-03-16] MEDS: PALIPERIDONE 6 MG TAB.ER.24 PO SCH (08:34)
[2017-03-16] MEDS: LORazepam 1 MG TAB PO PRN ×2 (08:34→18:39)
[2017-03-16] MEDS: NICOTINE 14MG/24HR PATCH TRANSDERM SCH (08:34)
--- NOTE | 2017-03-16 15:18 | P.PN ---
Progress Note - Text Weekend coverage for Dr. Quinn. INTERVERAL HISTORY: Review of record, discussed with nursing staff, met with patient. Staff noted he has been less visible on unit since another female patient discharged. Patient in bed, reports his family meeting was "bumpy", SW reported it was very difficult, patient using foul language to mother and SW. Patient requesting seroquel for sleep tonight. Suggested he not sleep in day and he would have a good chance of sleeping tonight. Patient asks when he might be leaving, if we could change his medication. Suggested he speak to Dr Quinn tomorrow that medications need time to take effect and DR Giles should make that decision with him. Patient agreed to trial of trazodone but instead will give Benadryl due to priaprism. MENTAL STATUS EXAM: Alert and oriented 3, pleasant, cooperative. Speech normal volume, rate and production. There is no auditory or visual hallucinations reported, nor was there any evidence that he was responding to internal stimuli. Mood neutral, affect constricted. No report of delusions. No suicidal or homicidal ideation. Plan: continue with inpatient psychiatric hospitalization, for safety and treatment purposes. Suicide precautions and every 15 minute checks. Benadryl prn insomnia Continue current medication. Monitor for clinical progress
[2017-03-16] MEDS ORDERED: diphenhydrAMINE 25 MG CAP PO PRN (15:19)
[2017-03-17] MEDS: NICOTINE 14MG/24HR PATCH TRANSDERM SCH (08:15)
--- NOTE | 2017-03-17 09:07 | P.PN ---
Progress Note - Text Interval history: The patient is found in the hallway he approaches me to speak this morning. It appears his family meeting went poorly the social work notes were reviewed. His mother was encouraged to get guardianship. The patient states that the meeting did agitate him but he felt some parts of it went okay. We discussed his medication he continues to feel he does not need one but he is willing to comply. He discussed the likelihood of initiating Invega Sustenna. He does offer some resistance to the idea of getting shots. There is however an ongoing concern he will discontinue his medication upon discharge. He states he signed a paper with Dr. Fine saying he does not have to take medication so long as he does drug testing. Mental status exam: The patient is a thin male he is dressed in his own clothing eye contact is appropriate. He is mildly agitated and defensive but demonstrates no verbal or physical aggressiveness during the session. He reports a frustrated mood. He is endorsing no symptoms of psychosis but some delusional thought persists. Insight and judgment limited. No abnormal involuntary movements observed. He does not appear hypomanic or manic but can be circumstantial at times. He is reporting no suicidal or homicidal ideation. Plan: The patient will continue on the Invega we will increase to 9 mg daily. We discussed the likelihood of initiating Invega Sustenna during the hospitalization. We will continue to monitor him for safety. He is encouraged to continue participating in the milieu. We will continue to involve his mother and discharge planning.
[2017-03-17] MEDS: PALIPERIDONE 6 MG TAB.ER.24 PO SCH (09:19)
[2017-03-17] MEDS: PALIPERIDONE 3 MG TAB.ER.24 PO SCH (09:23)
[2017-03-17] MEDS: LORazepam 1 MG TAB PO PRN (20:04)
[2017-03-17] MEDS: DOXEPIN 10 MG CAP PO SCH (21:48)
[2017-03-18] MEDS: NICOTINE 14MG/24HR PATCH TRANSDERM SCH (08:34)
[2017-03-18] MEDS: PALIPERIDONE 3 MG TAB.ER.24 PO SCH (08:35)
[2017-03-18] MEDS: LORazepam 1 MG TAB PO PRN ×2 (08:35→20:57)
--- NOTE | 2017-03-18 11:28 | P.PN ---
Progress Note - Text Interval history: The patient is found in his room he does not wish to get up and speak with me in an interview room. He reports his plan is to stay in bed all day and he doesn't want to get out until his discharge. He indicates he has not been showering and again states he will not do so until he is discharged. He is encouraged to demonstrate participation in the milieu and inability to care for himself. The Invega was increased he is reporting no side effects from the medication. The patient is more agitated today as he demands to be discharged. He is partially cooperative with the interview. Mental status exam: The patient is alert he is dressed in his own clothing there is a follow body odor noted when speaking to him in his room. Eye contact is poor he is lying in bed covered with a blanket. Affect is more irritable. He lacks insight into the reason for his admission and his behavior during the family meeting recently. He is intentionally endorsing no symptoms trying to facilitate a discharge. He demonstrates no physical aggressiveness but is more verbally aggressive during a second conversation with him as he approached my office. He remains oriented. Plan: The patient will continue on the Invega 9 mg. We will allow this time to demonstrate efficacy. We will monitor him for safety. He is encouraged to attend to his ADLs and participate in the milieu. If he were to demonstrate sufficient improvement over the next several days and we are able to use the Invega Sustenna he may be appropriate for discharge by the end of the week. Vital signs reviewed.
[2017-03-18 12:56] VITALS: BMI 22.5
[2017-03-18] MEDS: DOXEPIN 10 MG CAP PO SCH (20:55)
[2017-03-19] MEDS: NICOTINE 14MG/24HR PATCH TRANSDERM SCH ×2 (08:40→08:47)
[2017-03-19] MEDS: PALIPERIDONE 3 MG TAB.ER.24 PO SCH (08:40)
[2017-03-19] MEDS: LORazepam 1 MG TAB PO PRN ×2 (11:42→21:34)
--- NOTE | 2017-03-19 11:49 | P.PN ---
Progress Note - Text Covering for Dr. Quinn Interval history: Discussed patient in treatment team meeting, reviewed the chart. Patient came to the door of my office knocking asking to be seen. States that he met with Bernie the [facility] [employer] sales representative, and that he does not know what he is being treated for, why is he here, how is it that they can still hold him here. Patient states that the medicine is not doing anything for him. Review the chart to give patient an idea of diagnoses when I mentioned Dr. Hull's name patient stated he is piece of s..., Patient stated that he doesn't have psychosis and that he doesn't need to use the drugs. Reviewed the next evaluation with diagnosis of psychosis, unspecified rule out schizophrenia or schizoaffective form bipolar type patient again used vulgar language regarding those diagnoses and the doctors that made then and reporting he has documents at home saying he is not schizophrenic, and that Dr Fine even let him go w/o taking medications. Patient is irritable unable to listen to anything other then agreeing with him. Patient became uncooperative but on his way out stated an apology that he didn' t want this to be against me. Mental status exam: An silly unchanged he is alert and oriented 3 poorly groomed, eye contact is intense particularly when he is angry. Slapping a piece of paper against his hand. Speech was normal volume but would come loud, normal rate and slight increase of production but I would not say that it was pressured. No clear evidence of auditory or visual hallucinations. No clear evidence of paranoia. Mood extreme irritability, affect constricted Patient denies suicidal ideation. As noted in Dr. Quinn's note that the patient is deliberately denying all symptoms in order to have the discharge of completed, there was a sense that he somehow or another thought that maybe an Dr. Quinn's absence that he would be able to manipulate the situation and be discharged. Once he realized that that would not happen he then became more irritable and demanding the injection just to get it over with so he could get out. Explained to him that the plan was to see if he had some improvement on Invega which would then lead to a long-term acting injection, but that since I could not see improvement, and that Dr. Quinn will be here tomorrow that it will be deferred until his assessment tomorrow. That was when patient ended the session Plan: The patient will continue on the Invega 9 mg. We will allow this time to demonstrate efficacy. We will monitor him for safety. He is encouraged to attend to his ADLs and participate in the milieu, he was in the activity room playing air hockey. If he were to demonstrate sufficient improvement over the next several days and we are able to use the Invega Sustenna he may be appropriate for discharge by the end of the week.
[2017-03-19] MEDS: DOXEPIN 10 MG CAP PO SCH (21:34)
[2017-03-20 00:33] VITALS: RESP 16
[2017-03-20] MEDS: NICOTINE 14MG/24HR PATCH TRANSDERM SCH (08:16)
[2017-03-20] MEDS: PALIPERIDONE 3 MG TAB.ER.24 PO SCH (08:16)
[2017-03-20] MEDS: LORazepam 1 MG TAB PO PRN ×2 (08:18→20:00)
--- NOTE | 2017-03-20 11:04 | P.PN ---
Progress Note - Text Interval history: The patient is found in his room lying in bed. He reports that he would like to be discharged. He has been complying with the oral dose of invega. We discussed initiating the injectable form of the medication and he is agreeable. Staff report that the patient has demonstrated no agitated behavior. He is observed relating to others appropriately. He is endorsing no symptoms at this time. It's noted that he did not sleep well last night however he does continue to sleep during the day which we again discussed. Appetite stable. Mental status exam: The patient is alert lying in bed eye contact is intermittent. Speech is fluent spontaneous nonpressured. He was directable cooperative. He demonstrates no verbal or physical aggressiveness. He is endorsing no acute suicidal or homicidal ideation. He is endorsing no symptoms of psychosis. It is possible that states still persist but likely they are attenuating. No abnormal involuntary movements noted. Insight and judgment are slowly improving. He remains oriented to person place and date. Affect constricted. On the unit his affect is observed to be more expressive with others. Plan: The patient will continue on the invega as written we will initiate invega systemic 234 mg tomorrow with a possible plan of discharging him tomorrow if he continues to demonstrate clinically appropriate behavior. We will continue to monitor him for safety and encourage his participation in the milieu.
[2017-03-20 15:04] LABS: Appearance,Urine Clear (Clear); Bilirubin,Urine Negative (Negative); Glucose,Urine (UA) Negative (Negative); Ketones,Urine Negative (Negative); Leukocyte Esterase,Urine Negative (Negative); Nitrite,Urine Negative (Negative); PH, Urine 5.5 (5.0-8.0); Protein,Urine Negative (Negative); Specific Gravity,Urine 1.013 (1.001-1.035); UA Billing (MACRO vs. MICRO) CHEM; Urobilinogen,Urine <2.0 mg/dL (<2.0)
[2017-03-20] MEDS: DOXEPIN 10 MG CAP PO SCH (20:11)
[2017-03-21 01:21] VITALS: BP 145/73; PULSE 78; TEMP 97.4
[2017-03-21] MEDS ORDERED: PALIPERIDONE IM 234 MG/1.5 ML SYG IM ONE (09:00)
[2017-03-21] MEDS: PALIPERIDONE 3 MG TAB.ER.24 PO SCH (09:22)
[2017-03-21] MEDS: NICOTINE 14MG/24HR PATCH TRANSDERM SCH (09:23)
--- NOTE | 2017-03-21 10:56 | P.DS ---
Providers Date of admission: 03/12/17 19:30 Expected date of discharge: 03/21/17 Attending physician: Salomon Quinn Consults: 03/12/17 19:40 Consult Physician Routine Consulting Provider: Kip Flowers Consult Reason/Comments: H&P with medical follow up Do you want consulting provider notified?: Yes Primary care physician: Kip Flowers - Discharge Diagnosis(es) (1) Psychosis Current Visit: Yes Status: Acute Priority: High (2) Cannabis use disorder, mild, abuse Current Visit: Yes Status: Acute Priority: Medium Hospital Course: Brief summary of admission note: This patient is a 21-year-old single male who was admitted to the mental health unit through the emergency room as he was brought in on an existing court order for symptoms of psychosis and aggressiveness. The patient was previously prescribed oral invega and he has been noncompliant with the medication prompting the hospitalization. The patient's family had called 911 as he was demonstrating aggressiveness at home and was appearing paranoid. The patient presented with a lack of insight into the symptoms. For full details please refer to my psychiatric evaluation dated 03/13/2017. Summary of hospital course: The patient was admitted to the mental health unit on an existing court order. We reviewed his presenting symptoms and medication options. We reviewed alternatives but decided to continue using invega and titrated the oral dose. The dose was titrated to 9 mg. The acute symptoms of psychosis seemed to have improved. The patient was able to refrain from any aggressive behavior. He did selectively attend groups. When frustrated with continued hospitalization he isolated more in his room. He has been observed socializing appropriately with peers. We discussed the plan of initiating Invega Sustenna in the first injection of 234 mg was given yesterday. Doxepin has been used to facilitate sleep at night. He is aware he will need another injection in 7 days and he will need to comply with further to [place] [facility] appointments. The patient has demonstrated sufficient improvement allowing us to transition him to outpatient care. Social work has been in touch with the patient's mother. Mental status exam: The patient is alert he is dressed in his own clothing hygiene is adequate grooming is adequate. He maintains appropriate eye contact he seated calmly in the chair. He is cooperative with no agitated behavior. He is reporting no suicidal or homicidal ideation intent or plan. He is endorsing no thoughts of aggressiveness. He spontaneously verbalizes plans of wanting to find employment and eventually his own housing. He is reporting no auditory or visual hallucinations he is reporting no specific delusions. There may be some residual symptoms of psychosis but they are attenuated compared to their severity at admission. He demonstrates no verbal or physical aggressiveness. Insight and judgment improved compared to admission. He demonstrates no abnormal involuntary movements. Affect is appropriately expressive today. Impressions 1. Psychosis unspecified, rule out schizophrenia rule out schizoaffective disorder, cannabis use disorder 2. Unemployed Plan: The patient will be discharged from mental health unit today he will return home with family. He was given an injection of Invega Sustenna 234 mg IM yesterday he will be due for the 150 mg dose IM on 03/27/2017. He will continue on doxepin 20 mg at bedtime if needed for sleep. We will we will continue the oral Invega dose for another week. The patient will continue receiving treatment through [facility] he remains on a court order for psychiatric treatment. He does not wish to participate in inpatient chemical dependency treatment for his use of marijuana. No other medication is required to address that issue. He will address substance use issues as an outpatient with [facility]. The patient's is not seen to be at an imminent risk of harming himself or others he is able to participate in his activities of daily living. We will transition him to outpatient care as he does not require further involuntary hospitalization. Patient Condition at Discharge: Stable Plan - Discharge Summary New Discharge Prescriptions: New Doxepin [SINEquan] 20 mg PO HS #60 cap Nicotine 14Mg/24Hr Patch [Habitrol] 1 patch TRANSDERM DAILY #12 patch Paliperidone [Invega] 9 mg PO DAILY #14 tab Paliperidone IM [Invega Sustenna] 156 mg IM ONCE #1 syr Paliperidone [Invega] 9 mg PO DAILY #7 tab.[email or web address] Paliperidone [Invega] 9 mg PO DAILY #21 tab.er.[email or web address] Discontinued Paliperidone [Invega] 3 mg PO DAILY Discharge Medication List Doxepin [SINEquan] 20 mg PO HS #60 cap 03/21/17 [Rx] Nicotine 14Mg/24Hr Patch [Habitrol] 1 patch TRANSDERM DAILY #12 patch 03/21/17 [ Rx] Paliperidone IM [Invega Sustenna] 156 mg IM ONCE #1 syr 03/21/17 [Rx] Paliperidone [Invega] 9 mg PO DAILY #14 tab 03/21/17 [Rx] Paliperidone [Invega] 9 mg PO DAILY #21 tab.[email or web address] 03/21/17 [Rx] Paliperidone [Invega] 9 mg PO DAILY #7 tab.[email or web address] 03/21/17 [Rx] Follow up Appointment(s)/Referral(s): [facility] [Outside] - 03/25/17 1:00 pm (Shanti 03/25/17 at 1:00 pm Ruthie Castillo 05/16/17 at 9:15 am) Kip Flowers DO [Primary Care Provider] - 1-2 days Patient Instructions/Handouts: Depression (DC), Brief Psychotic Disorder (DC), Cannabis Abuse (DC) Activity/Diet/Wound Care/Special Instructions: Activity and diet as tolerated. Avoid the use of all street drugs and alcohol. Take your medications as prescribed. When you are in need of refills please contact your medical provider or outpatient psychiatrist to have this done. Please go to all scheduled outpatient appointments for aftercare. If your symptoms return or become worse call the crisis line at 1--[phone] or go to your nearest emergency room.
[2017-03-21] MEDS ORDERED: DOXEPIN 10 MG CAP PO SCH (21:00)
== END 2017-03-21 12:45 | disposition home or self-care (01) | DRG 885 ==
LOC: EC 14:17 → 3MHU 19:30
PROVIDERS: ADMIT Psychiatry & Neurology Psychiatry; ATTEND Psychiatry & Neurology Psychiatry
DX: F29 Unspecified psychosis not due to a substance or known physiological condition (principal); Z78.1 Physical restraint status; F12.10 Cannabis abuse, uncomplicated; Z81.8 Family history of other mental and behavioral disorders; Z91.14 Patient's other noncompliance with medication regimen; Z91.19 Patient's noncompliance with other medical treatment and regimen; Z56.0 Unemployment, unspecified; F90.9 Attention-deficit hyperactivity disorder, unspecified type
CPT/HCPCS: 80048; 80306; 81003; 84443; 85025; 96372; 99285

== ENCOUNTER 2018-08-31 22:42 | Emergency (ER) | payer OTHER ==
[2018-08-31 22:49] VITALS: BP 141/87; PULSE 96; RESP 20; TEMP 98.3
[2018-08-31] MEDS ORDERED: CEPHALEXIN 500MG STARTER PACK 4 CAP BTL PO STA (22:54)
[2018-08-31] MEDS ORDERED: cefTRIAXone 1,000 MG VIAL (IM USE) IM STA (22:54)
[2018-08-31] MEDS ORDERED: SULFAMETH-TMP DS STARTER PACK 2 TAB BTL PO STA (22:54)
--- NOTE | 2018-08-31 22:57 | ED ---
Skin/Abscess/FB HPI - General Chief complaint: Skin/Abscess/Foreign Body Stated complaint: facial swelling/leg injury Time Seen by Provider: 08/31/18 22:51 Source: patient, RN notes reviewed Mode of arrival: ambulatory Limitations: no limitations - History of Present Illness Initial comments: 23-year-old male presents emergency Department chief complaint abscess. Patient states she's had one his left eye for last few days. Patient states that he has also developed on his left cheek and last 2 days. He has no history of MRSA he has no known diabetic drug ALLERGIES. Patient denies fever, chills, neck pain, neck stiffness, night sweats. Patient states here Friday painful he states he has attempted to squeeze out with no drainage. - Related Data Previous Rx's Medication Instructions Recorded Doxepin [SINEquan] 20 mg PO HS #60 cap 03/21/17 Nicotine 14Mg/24Hr Patch [Habitrol] 1 patch TRANSDERM DAILY #12 patch 03/21/17 Paliperidone IM [Invega Sustenna] 156 mg IM ONCE #1 syr 03/21/17 Paliperidone [Invega] 9 mg PO DAILY #14 tab 03/21/17 Paliperidone [Invega] 9 mg PO DAILY #21 tab.er.24 03/21/17 Paliperidone [Invega] 9 mg PO DAILY #7 tab.er.24 03/21/17 Cephalexin [Keflex] 500 mg PO Q6HR #40 cap 08/31/18 Sulfamethox-Tmp 800-160Mg [Bactrim 1 each PO Q12HR #20 tab 08/31/18 Ds] Allergies Allergy/AdvReac Type Severity Reaction Status Date / Time haloperidol [From Haldol] AdvReac Severe Unknown Verified 08/31/18 22:49 Review of Systems ROS Statement: Those systems with pertinent positive or pertinent negative responses have been documented in the HPI. ROS Other: All systems not noted in ROS Statement are negative. Past Medical History Past Medical History: No Reported History History of Any Multi-Drug Resistant Organisms: None Reported Past Surgical History: Ear Surgery Additional Past Surgical History / Comment(s): tubes as adol. Past Anesthesia/Blood Transfusion Reactions: No Reported Reaction Past Psychological History: ADD/ADHD, Schizophrenia Smoking Status: Current every day smoker Past Alcohol Use History: None Reported Past Drug Use History: None Reported General Exam Limitations: no limitations General appearance: alert, in no apparent distress Head exam: Present: atraumatic, normocephalic, normal inspection Eye exam: Present: normal appearance, PERRL, EOMI. Absent: scleral icterus, conjunctival injection, periorbital swelling ENT exam: Present: normal exam, normal oropharynx, mucous membranes moist, TM's normal bilaterally, normal external ear exam Neck exam: Present: normal inspection, full ROM. Absent: tenderness, meningismus, lymphadenopathy Respiratory exam: Present: normal lung sounds bilaterally. Absent: respiratory distress, wheezes, rales, rhonchi, stridor Cardiovascular Exam: Present: regular rate, normal rhythm, normal heart sounds. Absent: systolic murmur, diastolic murmur, rubs, gallop, clicks Skin exam: Present: warm, dry, intact, normal color, other (Left thigh there is an area of approximately 2 cm firm nonfluctuant abscess with surrounding 2 cm of erythema, left cheek there is a 1 cm abscess nonfluctuant.) Course Vital Signs 08/31/18 22:47 Temperature 98.3 F Pulse Rate 96 Respiratory 20 Rate Blood Pressure 141/87 Medical Decision Making - Medical Decision Making Patient has 2 abscesses noted with no fluctuance no need for I&D at this time. Patient was started on Keflex and Bactrim. Patient apply warm compresses. Return parameters were discussed. Disposition Clinical Impression: Facial abscess, Abscess of left thigh Disposition: HOME SELF-CARE Condition: Stable Instructions: Abscess (ED) Additional Instructions: Apply warm compresses 20 minutes at a time.Please return to the Emergency Department if symptoms worsen or any other concerns. Prescriptions: Cephalexin [Keflex] 500 mg PO Q6HR #40 cap Sulfamethox-Tmp 800-160Mg [Bactrim Ds] 1 each PO Q12HR #20 tab Is patient prescribed a controlled substance at d/c from ED?: No Referrals: Kip Flowers DO [Primary Care Provider] - 1-2 days Time of Disposition: 22:57
== END 2018-08-31 23:10 | disposition home or self-care (01) ==
LOC: EC 22:42
DX: L02.01 Cutaneous abscess of face (principal); L02.416 Cutaneous abscess of left lower limb; F17.200 Nicotine dependence, unspecified, uncomplicated; Z88.8 Allergy status to other drugs, medicaments and biological substances
CPT/HCPCS: 99282; 96372; J0696

== ENCOUNTER 2019-01-23 20:32 | Inpatient (IN) | payer MEDICAID, OTHER ==
[2019-01-23] MEDS ORDERED: LORazepam 1 MG TAB PO STA (21:42)
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
[2019-01-23] MEDS ORDERED: ACETAMINOPHEN TAB 325 MG TAB PO PRN (22:21)
[2019-01-23] MEDS ORDERED: MAG HYDROX/AL HYDROX/SIMETH 30 ML CUP PO PRN (22:21)
[2019-01-23] MEDS ORDERED: MAGNESIUM HYDROXIDE 2,400 MG/10 ML CUP PO PRN (22:21)
[2019-01-23] MEDS ORDERED: ZIPRASIDONE 20 MG VIAL IM PRN (22:21)
[2019-01-23] MEDS: LORazepam 1 MG TAB PO PRN (23:16)
[2019-01-23] MEDS ORDERED: PALIPERIDONE 6 MG TAB.ER.24 PO ONE (23:30)
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
[2019-01-24] MEDS: LORazepam 1 MG TAB PO PRN (11:09)
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
[2019-01-25] MEDS: LORazepam 1 MG TAB PO PRN ×2 (09:16→16:08)
--- NOTE | 2019-01-25 10:14 | P.PN ---
Progress Note - Text Interval history: The patient is found in the hallway he follows me to the self lounge to speak. He was observed earlier this morning making strange noises loudly in the hallway. As he walked by me he made a gesture as if he was going to take my eyeglasses out of my hand. During our time and the self lounge he was able to demonstrate a calm demeanor. He states that's he is concerned about his anxiety and appreciates taking the Ativan. He is able to state that his diagnosis given by [facility] of schizoaffective disorder bipolar type. Initially he states he's thinking of going to rehab although he's been clean. He has the access number and is trying to decide if he will call. We discussed that in some detail. He initially stated he does not want any medication for his schizoaffective disorder then later changed his mind to state he would try Abilify again. We discussed that if that medication was effective for him we could transition to the injectable Depo form. He again states that he believes he could assault people up here and have no legal consequences because he is in the mental health unit. We discussed that in an event somebody was violent they could be charged and they would go through the forensic system. Mental status exam: The patient is alert he is dressed in his own clothing he is mildly disheveled. Eye contact is infrequent. He does continue to look about the room. He does have ongoing psychomotor activity as he seated. Overall he is less irritable compared to yesterday during this brief interaction. Again he continues to quickly denied having any symptoms as he dismisses questions asked. He demonstrated no verbal or physical aggressiveness. Insight and judgment are limited. Thought process demonstrates disorganization. In terms of his responses to symptoms of psychosis or safety I would consider him an invalid historian at this time. Plan: The patient was agreeable to having the initiate Abilify we will start with 15 mg. He is interested in using Vistaril 25 mg up to 3 times daily for anxiety. We discussed that the Ativan will not be available on an outpatient basis and it is to be used only for acute anxiety on the mental health unit. We discussed the expectation that he will demonstrate no violent behavior. We discussed the consequences of violent behavior. Staff report that the patient has been cooperative this morning. Vital signs reviewed. Into need to monitor him for safety. We will review community mental health records once they are available. He does have a pending deferral conference.
[2019-01-25] MEDS: ARIPiprazole 15 MG TAB PO SCH (10:17)
[2019-01-25] MEDS: hydrOXYzine PAMOATE 25 MG CAP PO PRN (10:18)
[2019-01-26] MEDS: ARIPiprazole 15 MG TAB PO SCH (08:19)
[2019-01-26] MEDS: LORazepam 1 MG TAB PO PRN (08:20)
[2019-01-26 08:38] LABS: Appearance,Urine Clear (Clear); Bilirubin,Urine Negative (Negative); Blood,Urine Negative (Negative); Color,Urine Yellow; Glucose,Urine (UA) Negative (Negative); Ketones,Urine Negative (Negative); Leukocyte Esterase,Urine Trace (Negative); Mucus,Urine Rare /hpf; Nitrite,Urine Negative (Negative); Protein,Urine Negative (Negative); RBC,Urine 3 /hpf (0-5); Specific Gravity,Urine 1.028 (1.001-1.035); Urobilinogen,Urine <2.0 mg/dL (<2.0); WBC,Urine 8 /hpf (0-5)
--- NOTE | 2019-01-26 10:15 | P.PN ---
Progress Note - Text Interval history: The patient's found in his room sleeping his verbally arousable. He did not wish to speak in an interview room but was willing to conduct the interview in his room. He states that he did sleep last night appetite stable. He has been complying with the Abilify as ordered. He reports that he is doing fine. There is no documentation of behavioral disturbance. We reviewed his psychotropic medication he has no questions. Mental status exam: The patient is alert he is lying in bed he has intermittent eye contact he has spontaneous speech. He reports his mood is fine. Affect is bland. He denies having any suicidal or homicidal thoughts. He states "I'm all done with mental health court". He quickly denies having any symptoms of psychosis. He has a disheveled appearance hygiene is adequate. He is dressed in his own clothing. He has pulled the mattress off the adjacent bed and stacked on his bed. During the interview he abruptly gets up puts his shoes on and goes to the restroom terminating our discussion. There was no observed involuntary repetitive movements. He demonstrated no verbal or physical aggressiveness. Plan: The patient will continue on the Abilify that has been just started. We will titrate as needed. We will continue to monitor him for safety and encourage full participation in the milieu. We will await the outcome of the deferral conference. I will confer with the treatment team regarding his behavior over the last 24 hours. Social work notes reviewed. So far he is not allowing us to contact any family or friends to involve them in his care. At this time he requires continued psychiatric hospitalization. Results from drug screen pending.
[2019-01-26 19:07] LABS: Urine Alcohol Negative (Negative); Urine Barbiturate Negative (Negative); Urine Cocaine Negative (Negative); Urine Methadone Negative (Negative); Urine Opiates Negative (Negative); Urine Phencyclidine Negative (Negative)
[2019-01-27] MEDS: ARIPiprazole 15 MG TAB PO SCH (09:02)
[2019-01-27] MEDS: hydrOXYzine PAMOATE 25 MG CAP PO PRN (09:03)
[2019-01-27] MEDS ORDERED: ARIPiprazole IM 400 MG VIAL (NO COST) IM ONE (09:22)
--- NOTE | 2019-01-27 09:26 | P.PN ---
Progress Note - Text Interval history: The patient is found in the hallway he follows me to an interview room. He indicates his mood is improving. Staff report no behavioral disturbances. He states that he had some phone conversations with his mother. He feels that he will be able to return home or reside with his father. We discussed his psychotropic medications. He is agreeable to receive the Abilify maintena injection today. He did meet with his compliance attorney yesterday and signed a deferral agreement. Mental status exam: The patient is alert he is cooperative. He is dressed in his own clothing hygiene is adequate. Speech is fluent spontaneous nonpressured. He indicates his mood is good. Affect is euthymic. He reports no suicidal or homicidal ideation intent or plan. He demonstrates no tangential thinking loose associations or flight of ideas. He demonstrates no irritability in terms of affect. He states he does not feel angry or irritable. He feels that racing thoughts have improved. Insight and judgment overall have improved. He demonstrates no verbal or physical aggressiveness he demonstrates no involuntary repetitive movements. Plan: The patient will continue on his current psychotropic medications. He will receive the Abilify maintena 400 mg injection today. We will monitor his behavior and monitor him for safety. Social work will confer with the patient's family regarding discharge planning. If he remains clinically stable and demonstrates further improvement he could be appropriate for discharge in the next 1-2 days.
[2019-01-27] MEDS ORDERED: ARIPiprazole IM SYRINGE 400 MG (NO CHARGE) IM ONE (11:00)
[2019-01-28 07:22] VITALS: BP 113/51; PULSE 68; RESP 16; TEMP 98.7
[2019-01-28] MEDS: hydrOXYzine PAMOATE 25 MG CAP PO PRN (08:45)
[2019-01-28] MEDS: ARIPiprazole 15 MG TAB PO SCH (08:45)
--- NOTE | 2019-01-28 10:06 | P.DS ---
Providers Date of admission: 01/23/19 22:05 Expected date of discharge: 01/28/19 Attending physician: Salomon Quinn Consults: 01/23/19 22:21 Consult Physician Routine Consulting Provider: Ha Ramachandran Consult Reason/Comments: medical management Do you want consulting provider notified?: Yes Primary care physician: Stated None - Discharge Diagnosis(es) (1) Schizoaffective disorder Current Visit: Yes Status: Acute Priority: High (2) Methamphetamine use disorder, moderate Current Visit: Yes Status: Acute Priority: High (3) Opioid use disorder Current Visit: Yes Status: Acute Priority: Medium (4) Cannabis use disorder, mild, abuse Current Visit: Yes Status: Acute Priority: Medium Hospital Course: Brief summary of admission note: This patient is a 23-year-old single male was admitted to the mental health unit on a petition for making suicidal statements and other threatening statements. He threatened to jump off a bridge. The petition noted that the patient was suspected to be noncompliant with medication. He had not been attending appointments at [facility]. Upon presentation the patient was very irritable he was agitated and he was verbally threatening. He does carry diagnosis of schizoaffective disorder along with substance use disorders. For full details please refer to my psychiatric evaluation dated 01/24/2019. Summary of hospital course: The patient was admitted to the mental health unit in voluntarily. A second clinical certificate was completed. A deferral conference was held and the patient did defer a court hearing. Upon presentation we attempted to review medication options. The patient was initially quite agitated and threatening. With subsequent visits we were able to discuss medication management and he was agreeable to Abilify. He only selectively attended groups. He did demonstrate a progressive improvement of symptoms while here. Overall last several interactions he's been much more ple asant and cooperative. His own initiative he arranged inpatient chemical dependency treatment and that is scheduled to start this coming Friday. The patient was seen by internal medicine for routine history and physical exam. Social work has been speaking with the patient's mother for discharge planning purposes. The patient feels that he has safe he is reporting no suicidal ideation. He demonstrates future oriented thinking. Mental status exam: The patient is alert he is dressed in his own clothing. Hygiene grooming adequate. Speech is fluent spontaneous nonpressured. He reports no suicidal or homicidal ideation intent or plan. He reports no auditory or visual hallucinations or any specific delusions. He demonstrates no objective evidence of psychosis at this time. He demonstrates no tangential thinking loose associations or flight of ideas. He does not appear currently hypomanic or manic. He is oriented to person place and date. He demonstrates no verbal or physical aggressiveness he demonstrates no repetitive involuntary movements. Affect is appropriately expresses he no longer appears irritable or agitated. Impressions 1. Schizoaffective disorder, methamphetamine use disorder, opioid use disorder, cannabis use disorder Plan: The patient will be discharged mental health unit today. He will continue on Abilify 15 mg daily for 12 days then discontinue. He received his Abilify maintena injection of 400 mg yesterday. He will be due for his next 1 on 02/25/2019. He may use Vistaril 25 mg up to 3 times daily as needed for anxiety. He plans on attending inpatient chemical dependency treatment starting this coming Friday. He is instructed to abstain from any alcohol marijuana or any other substance use. We discussed of the substances can precipitate mood and psychotic symptoms and will elevate his safety risk. At this time there is no imminent safety risk he is appropriate for transition to outpatient care. He is instructed to return to the hospital for any acute safety concerns. We discussed that he is on a deferral agreement and we discussed the consequences of not complying with that agreement. Patient Condition at Discharge: Stable Plan - Discharge Summary New Discharge Prescriptions: No Action Invega Sustenna 117mg 117 mg IM Q28D Discharge Medication List Invega Sustenna 117mg 117 mg IM Q28D 01/24/19 [History] Follow up Appointment(s)/Referral(s): [facility] [Outside] - 01/30/19 10:30 am (Intake Must have a ride to facility ) None,Stated [Primary Care Provider] - 1 Week Patient Instructions/Handouts: Depression (DC), Help Prevent Suicide (DC), Psychotic Disorder (DC) Activity/Diet/Wound Care/Special Instructions: Activity and diet as tolerated. No guns or weapons in the home. Take all medications as prescribed and attend all follow up appointments as scheduled. Refrain from alcohol and street drugs not prescribed by your physician. If in need of of medication refills, please go to your primary care physician or to your outpatient psychiatric provider. If in crisis please call , or go to the nearest EC.
== END 2019-01-28 12:31 | disposition home or self-care (01) | DRG 885 ==
LOC: EC 20:32 → 3MHU 22:05
PROVIDERS: ADMIT Psychiatry & Neurology Psychiatry; ATTEND Psychiatry & Neurology Psychiatry
DX: F25.0 Schizoaffective disorder, bipolar type (principal); R45.851 Suicidal ideations; F15.20 Other stimulant dependence, uncomplicated; F11.10 Opioid abuse, uncomplicated; F12.10 Cannabis abuse, uncomplicated; F90.9 Attention-deficit hyperactivity disorder, unspecified type; F41.9 Anxiety disorder, unspecified; T50.906A Underdosing of unspecified drugs, medicaments and biological substances, initial encounter; F17.200 Nicotine dependence, unspecified, uncomplicated; Z79.2 Long term (current) use of antibiotics; Z79.899 Other long term (current) drug therapy; Z81.8 Family history of other mental and behavioral disorders; Z88.8 Allergy status to other drugs, medicaments and biological substances
CPT/HCPCS: 80306; 81001; 82075; 99285

== ENCOUNTER 2019-04-28 01:33 | Emergency (ER) | payer OTHER ==
[2019-04-28 01:50] VITALS: TEMP 97.8
[2019-04-28 06:32] LABS: Amphetamine Screen,Urine Not Detected (NotDetected); Barbiturate Screen,Urine Not Detected (NotDetected); Benzodiazepines Screen,Urine Not Detected (NotDetected); Cocaine Screen,Urine Not Detected (NotDetected); Methadone Screen, Urine Not Detected (NotDetected); Opiate Screen,Urine Not Detected (NotDetected); Oxycodone Screen, Urine Not Detected (NotDetected); Phencyclidine Screen,Urine Not Detected (NotDetected); Tricyclic Antidepressant,Urine Not Detected (NotDetected); Urn Cannabinoid Scrn Detected (NotDetected)
--- NOTE | 2019-04-28 07:03 | ED ---
Psych HPI - General Chief Complaint: Psychiatric Symptoms Stated Complaint: Mental Health Time Seen by Provider: 04/28/19 01:55 Source: patient, police Mode of arrival: ambulatory - History of Present Illness Initial Comments: This patient is 23-year-old man who is brought in by law enforcement personnel to have Court ordered evaluation. There is paperwork accompanying that states that the patient has been noncompliant with his mandated treatment plan. The patient himself is not giving any complaints. He denies depression, suicidal ideation, homicidal ideation and hallucinations. He states he feels well and wants go home. Complaint: other -: days(s) Associated Psychiatric Symptoms: other Improves With: none Worsens With: none Associated Symptoms: denies other symptoms - Related Data Previous Rx's Medication Instructions Recorded ARIPiprazole IM [Abilify Maintena] 400 mg IM QMONTH #1 vial 01/28/19 ARIPiprazole [Abilify] 15 mg PO DAILY #12 tab 01/28/19 hydrOXYzine PAMOATE [Vistaril] 25 mg PO Q8HR PRN #30 cap 01/28/19 Allergies Allergy/AdvReac Type Severity Reaction Status Date / Time haloperidol [From Haldol] AdvReac Severe Extrapyramidal Verified 04/28/19 06:48 symptoms Review of Systems ROS Statement: Those systems with pertinent positive or pertinent negative responses have been documented in the HPI. ROS Other: All systems not noted in ROS Statement are negative. Constitutional: Denies: fever, chills Respiratory: Denies: cough, dyspnea Cardiovascular: Denies: chest pain, palpitations Gastrointestinal: Denies: abdominal pain, vomiting, diarrhea Genitourinary: Denies: dysuria, hematuria Musculoskeletal: Denies: back pain Neurological: Denies: headache Psychiatric: Denies: anxiety, depression, auditory hallucinations, visual hallucinations, homicidal thoughts, suicidal thoughts Past Medical History Past Medical History: No Reported History History of Any Multi-Drug Resistant Organisms: None Reported Past Surgical History: Ear Surgery Additional Past Surgical History / Comment(s): tubes as adol. Past Anesthesia/Blood Transfusion Reactions: No Reported Reaction Past Psychological History: ADD/ADHD, Schizophrenia Smoking Status: Current every day smoker Past Alcohol Use History: None Reported Past Drug Use History: Marijuana, Methamphetamine General Exam Limitations: no limitations General appearance: alert, in no apparent distress Head exam: Present: atraumatic, normocephalic Eye exam: Present: normal appearance. Absent: scleral icterus, conjunctival injection ENT exam: Present: normal oropharynx Respiratory exam: Present: normal lung sounds bilaterally. Absent: respiratory distress, wheezes, rales, rhonchi, stridor Cardiovascular Exam: Present: regular rate, normal rhythm, normal heart sounds. Absent: systolic murmur, diastolic murmur, rubs, gallop GI/Abdominal exam: Present: soft. Absent: distended, tenderness Extremities exam: Present: normal inspection Neurological exam: Present: alert, oriented X3, normal gait Skin exam: Present: warm, dry, intact, normal color. Absent: rash Course Vital Signs 04/28/19 04/28/19 01:46 12:00 Temperature 97.8 F 97.8 F Pulse Rate 96 80 Respiratory 20 18 Rate Blood Pressure 157/95 116/74 O2 Sat by Pulse 99 99 Oximetry Medical Decision Making - Lab Data Result diagrams: 04/28/19 09:35 04/28/19 09:35 Lab Results 04/28/19 04/28/19 04/28/19 Range/Units 06:00 09:35 09:35 WBC 6.5 (3.8-10.6) k/uL RBC 5.50 (4.30-5.90) m/uL Hgb 16.5 (13.0-17.5) gm/dL Hct 48.4 (39.0-53.0) % MCV 88.0 (80.0-100.0) fL MCH 30.1 (25.0-35.0) pg MCHC 34.2 (31.0-37.0) g/dL RDW 12.5 (11.5-15.5) % Plt Count 249 (150-450) k/uL Neutrophils % 60 % Lymphocytes % 27 % Monocytes % 8 % Eosinophils % 3 % Basophils % 1 % Neutrophils # 3.9 (1.3-7.7) k/uL Lymphocytes # 1.7 (1.0-4.8) k/uL Monocytes # 0.5 (0-1.0) k/uL Eosinophils # 0.2 (0-0.7) k/uL Basophils # 0.1 (0-0.2) k/uL Sodium 141 (137-145) mmol/L Potassium 4.3 (3.5-5.1) mmol/L Chloride 106 (98-107) mmol/L Carbon Dioxide 24 (22-30) mmol/L Anion Gap 11 mmol/L BUN 18 (9-20) mg/dL Creatinine 1.23 (0.66-1.25) mg/dL Est GFR (CKD-EPI)AfAm >90 (>60 ml/min/1.73 sqM) Est GFR (CKD-EPI)NonAf 83 (>60 ml/min/1.73 sqM) Glucose 122 H (74-99) mg/dL Calcium 9.5 (8.4-10.2) mg/dL Total Bilirubin 0.4 (0.2-1.3) mg/dL AST 13 L (17-59) U/L ALT 14 L (21-72) U/L Alkaline Phosphatase 62 (38-126) U/L Total Protein 7.3 (6.3-8.2) g/dL Albumin 4.4 (3.5-5.0) g/dL Urine Opiates Screen Not Detected (NotDetected) Ur Oxycodone Screen Not Detected (NotDetected) Urine Methadone Screen Not Detected (NotDetected) Ur Propoxyphene Screen Not Detected (NotDetected) Ur Barbiturates Screen Not Detected (NotDetected) U Tricyclic Antidepress Not Detected (NotDetected) Ur Phencyclidine Scrn Not Detected (NotDetected) Ur Amphetamines Screen Not Detected (NotDetected) U Methamphetamines Scrn Not Detected (NotDetected) U Benzodiazepines Scrn Not Detected (NotDetected) Urine Cocaine Screen Not Detected (NotDetected) U Marijuana (THC) Screen Detected H (NotDetected) Disposition Clinical Impression: Mood disorder Disposition: TRANSFER TO PSYCH HOSP/UNIT Condition: Good Referrals: None,Stated [Primary Care Provider] - 1-2 days - Out of Hospital Transfer - Req. Specs Out of Hospital Transfer - Requested Specifics: Psychiatric Non-ICU
[2019-04-28] MEDS ORDERED: LORazepam 1 MG TAB PO STA (08:42)
[2019-04-28 09:45] LABS: Basophils # (A) 0.1 k/uL (0-0.2); Basophils % (A) 1 %; Eosinophils # (A) 0.2 k/uL (0-0.7); Eosinophils % (A) 3 %; HCT 48.4 % (39.0-53.0); HGB 16.5 gm/dL (13.0-17.5); Lymphocytes # (A) 1.7 k/uL (1.0-4.8); Lymphocytes % (A) 27 %; MCH 30.1 pg (25.0-35.0); MCHC 34.2 g/dL (31.0-37.0); Mean Platelet Volume 6.7; Monocytes # (A) 0.5 k/uL (0-1.0); Monocytes % (A) 8 %; Neutrophils # (A) 3.9 k/uL (1.3-7.7); Neutrophils % (A) 60 %; Platelet Count 249 k/uL (150-450); RDW 12.5 % (11.5-15.5); WBC 6.5 k/uL (3.8-10.6)
[2019-04-28 09:54] LABS: ALT 14 U/L (21-72); AST 13 U/L (17-59); African American GFR (CKD) >90 (>60 ml/min/1.73 sqM); Albumin 4.4 g/dL (3.5-5.0); Alkaline Phosphatase 62 U/L (38-126); Anion Gap 11 mmol/L; Blood Urea Nitrogen 18 mg/dL (9-20); Calcium 9.5 mg/dL (8.4-10.2); Carbon Dioxide 24 mmol/L (22-30); Chloride 106 mmol/L (98-107); Glucose 122 mg/dL (74-99); Potassium 4.3 mmol/L (3.5-5.1); Sodium 141 mmol/L (137-145); Total Bilirubin 0.4 mg/dL (0.2-1.3); Total Protein 7.3 g/dL (6.3-8.2)
[2019-04-28 12:24] VITALS: BP 116/74; PULSE 80; RESP 18
== END 2019-04-28 12:24 ==
LOC: EC 01:33
DX: F39 Unspecified mood [affective] disorder (principal); F17.200 Nicotine dependence, unspecified, uncomplicated; Z88.8 Allergy status to other drugs, medicaments and biological substances
CPT/HCPCS: 36415; 80053; 80306; 82075; 85025; 99285

== ENCOUNTER 2019-05-28 14:27 | Emergency (ER) | payer OTHER ==
[2019-05-28 14:31] VITALS: TEMP 98.4
--- NOTE | 2019-05-28 15:09 | ED ---
Psych HPI - General Chief Complaint: Psychiatric Symptoms Stated Complaint: Mental Health, Petitioned Time Seen by Provider: 05/28/19 14:48 Source: patient, police, RN notes reviewed Mode of arrival: ambulatory Limitations: no limitations - History of Present Illness Initial Comments: 23-year-old male presents emergency department for psychiatric evaluation. Patient was brought to emergency from a court ordered petition by police. Patient states he is not suicidal or homicidal denies any drug use. Patient states he has not taken any psychiatric medications in over 6 months. Patient states that he has not been falling up with [facility] or [facility] at this time. Patient denies any physical complaints patient offers no other pertinent information. - Related Data Previous Rx's Medication Instructions Recorded ARIPiprazole IM [Abilify Maintena] 400 mg IM QMONTH #1 vial 01/28/19 ARIPiprazole [Abilify] 15 mg PO DAILY #12 tab 01/28/19 hydrOXYzine PAMOATE [Vistaril] 25 mg PO Q8HR PRN #30 cap 01/28/19 Allergies Allergy/AdvReac Type Severity Reaction Status Date / Time haloperidol [From Haldol] AdvReac Severe Extrapyramidal Verified 05/28/19 14:57 symptoms Review of Systems ROS Statement: Those systems with pertinent positive or pertinent negative responses have been documented in the HPI. ROS Other: All systems not noted in ROS Statement are negative. Past Medical History Past Medical History: No Reported History History of Any Multi-Drug Resistant Organisms: None Reported Past Surgical History: Ear Surgery Additional Past Surgical History / Comment(s): tubes as adol. Past Anesthesia/Blood Transfusion Reactions: No Reported Reaction Past Psychological History: ADD/ADHD, Schizophrenia Smoking Status: Current every day smoker Past Alcohol Use History: None Reported Past Drug Use History: Marijuana, Methamphetamine General Exam Limitations: no limitations General appearance: alert, in no apparent distress Head exam: Present: atraumatic, normocephalic, normal inspection Eye exam: Present: normal appearance, PERRL, EOMI. Absent: scleral icterus, conjunctival injection, periorbital swelling ENT exam: Present: normal exam, normal oropharynx, mucous membranes moist Neck exam: Present: normal inspection, full ROM. Absent: tenderness, meningismus, lymphadenopathy Respiratory exam: Present: normal lung sounds bilaterally. Absent: respiratory distress, wheezes, rales, rhonchi, stridor Cardiovascular Exam: Present: regular rate (Patient was tachycardic in triage), normal rhythm, normal heart sounds. Absent: systolic murmur, diastolic murmur, rubs, gallop, clicks Neurological exam: Present: alert, oriented X3, CN II-XII intact Skin exam: Present: warm, dry, intact, normal color. Absent: rash Course Vital Signs 05/28/19 14:28 Temperature 98.4 F Pulse Rate 118 H Respiratory 18 Rate Blood Pressure 130/80 O2 Sat by Pulse 99 Oximetry Medical Decision Making - Medical Decision Making 23-year-old male presented for psychiatric evaluation on fruit picker order. Patient was evaluated he is not suicidal or homicidal. He does have drug use on board patient is stable for discharge patient will follow up with [facility] and psychiatrist recommends discharge. - Lab Data Lab Results 05/28/19 Range/Units 15:00 Urine Opiates Screen Not Detected (NotDetected) Ur Oxycodone Screen Not Detected (NotDetected) Urine Methadone Screen Not Detected (NotDetected) Ur Propoxyphene Screen Not Detected (NotDetected) Ur Barbiturates Screen Not Detected (NotDetected) U Tricyclic Antidepress Not Detected (NotDetected) Ur Phencyclidine Scrn Not Detected (NotDetected) Ur Amphetamines Screen Detected H (NotDetected) U Methamphetamines Scrn Detected H (NotDetected) U Benzodiazepines Scrn Not Detected (NotDetected) Urine Cocaine Screen Detected H (NotDetected) U Marijuana (THC) Screen Not Detected (NotDetected) Disposition Clinical Impression: Drug abuse Disposition: HOME SELF-CARE Condition: Stable Instructions (If sedation given, give patient instructions): Methamphetamine Abuse (ED) Additional Instructions: Please return to the Emergency Department if symptoms worsen or any other concerns. Is patient prescribed a controlled substance at d/c from ED?: No Referrals: Kip Flowers DO [Primary Care Provider] - 1-2 days Time of Disposition: 17:25
[2019-05-28 15:37] LABS: Amphetamine Screen,Urine Detected (NotDetected); Barbiturate Screen,Urine Not Detected (NotDetected); Benzodiazepines Screen,Urine Not Detected (NotDetected); Cocaine Screen,Urine Detected (NotDetected); Methadone Screen, Urine Not Detected (NotDetected); Opiate Screen,Urine Not Detected (NotDetected); Oxycodone Screen, Urine Not Detected (NotDetected); Phencyclidine Screen,Urine Not Detected (NotDetected); Tricyclic Antidepressant,Urine Not Detected (NotDetected); Urn Cannabinoid Scrn Not Detected (NotDetected)
[2019-05-28 18:57] VITALS: BP 156/87; PULSE 66; RESP 16
== END 2019-05-28 18:40 | disposition home or self-care (01) ==
LOC: EC 14:27
DX: F19.10 Other psychoactive substance abuse, uncomplicated (principal); F17.200 Nicotine dependence, unspecified, uncomplicated; Z88.8 Allergy status to other drugs, medicaments and biological substances
CPT/HCPCS: 80306; 82075; 99284

== ENCOUNTER 2020-09-17 11:15 | Emergency (ER) | payer OTHER ==
[2020-09-17 11:34] VITALS: PULSE 86; RESP 16; TEMP 97
--- NOTE | 2020-09-17 11:40 | ED ---
General Adult HPI - General Chief complaint: Extremity Problem,Nontraumatic Stated complaint: Leg issues Time Seen by Provider: 09/17/20 11:15 Source: patient, RN notes reviewed, old records reviewed Mode of arrival: ambulatory Limitations: no limitations - History of Present Illness Initial comments: This is a 25-year-old male presents emergency Department complaining of some knee pain 1 month. Patient has no direct trauma but he states his been hurting for a month because he walks on it. Patient denies any redness or swelling patient denies any fever chills. Patient denies any other complaints at this time. - Related Data Previous Rx's Medication Instructions Recorded ARIPiprazole IM [Abilify Maintena] 400 mg IM QMONTH #1 vial 01/28/19 ARIPiprazole [Abilify] 15 mg PO DAILY #12 tab 01/28/19 hydrOXYzine pamoate [Vistaril] 25 mg PO Q8HR PRN #30 cap 01/28/19 Allergies Allergy/AdvReac Type Severity Reaction Status Date / Time haloperidol [From Haldol] AdvReac Severe Extrapyramidal Verified 05/28/19 14:57 symptoms Review of Systems ROS Statement: Those systems with pertinent positive or pertinent negative responses have been documented in the HPI. ROS Other: All systems not noted in ROS Statement are negative. Past Medical History Past Medical History: No Reported History History of Any Multi-Drug Resistant Organisms: None Reported Past Surgical History: Ear Surgery Additional Past Surgical History / Comment(s): tubes as adol. Past Anesthesia/Blood Transfusion Reactions: No Reported Reaction Past Psychological History: ADD/ADHD, Schizophrenia Smoking Status: Current every day smoker Past Alcohol Use History: None Reported Past Drug Use History: Marijuana, Methamphetamine General Exam - General Exam Comments Initial Comments: GENERAL Patient is well-developed and well-nourished. Patient is in mild distress. EYES Patient's pupils are equal and round. Extraocular motion is intact SKIN Unremarkable NEURO The patient is alert and oriented 3 PYSCH Patient has normal interpersonal interactions. MUSCULOSKELETAL There is no ligament laxity of the left knee there is no area of swelling there is no effusion there is no redness patient has full range of motion good strength in his knee. There is no tenderness on palpation. Limitations: no limitations Course Vital Signs 09/17/20 11:31 Temperature 97.0 F L Pulse Rate 86 Respiratory 16 Rate Blood Pressure 129/78 O2 Sat by Pulse 98 Oximetry Disposition Clinical Impression: Knee strain Disposition: HOME SELF-CARE Condition: Good Instructions (If sedation given, give patient instructions): Knee Pain (ED) Additional Instructions: Patient should take Motrin when necessary for pain. Is patient prescribed a controlled substance at d/c from ED?: No Referrals: None,Stated [Primary Care Provider] - 1-2 days Time of Disposition: 11:40
--- NOTE | 2020-09-17 12:03 | XR ---
EXAMINATION TYPE: XR knee limited LT DATE OF EXAM: 09/17/2020 COMPARISON: NONE HISTORY: Pain TECHNIQUE: Two views are submitted. FINDINGS: Joint spaces are preserved. Osseous structures are intact. No acute fracture seen. IMPRESSION: 1. No acute fracture or dislocation.
[2020-09-17] MEDS ORDERED: IBUPROFEN 600 MG TAB PO STA (12:26)
[2020-09-17 12:41] VITALS: BP 139/86
== END 2020-09-17 12:40 | disposition home or self-care (01) ==
LOC: EC 11:15
DX: S86.919A Strain of unspecified muscle(s) and tendon(s) at lower leg level, unspecified leg, initial encounter (principal); F17.200 Nicotine dependence, unspecified, uncomplicated; Z88.8 Allergy status to other drugs, medicaments and biological substances; X58.XXXA Exposure to other specified factors, initial encounter
CPT/HCPCS: 99284

== ENCOUNTER 2022-02-10 14:35 | Emergency (ER) | payer OTHER ==
[2022-02-10 14:42] VITALS: BP 129/82; PULSE 70; RESP 16; TEMP 97.6
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
--- NOTE | 2022-02-10 15:55 | XR ---
EXAMINATION TYPE: XR wrist complete LT DATE OF EXAM: 02/10/2022 COMPARISON: NONE HISTORY: Wrist pain TECHNIQUE: 4 views FINDINGS: There is no sign of fracture nor dislocation. Joint spaces are normal. There are no patholo gic calcifications. Metacarpals are intact. Radiocarpal joint appears normal. IMPRESSION: Negative left wrist exam.
== END 2022-02-10 16:23 | disposition home or self-care (01) ==
LOC: EC 14:35
DX: S63.502A Unspecified sprain of left wrist, initial encounter (principal); F17.200 Nicotine dependence, unspecified, uncomplicated; Z88.8 Allergy status to other drugs, medicaments and biological substances; V19.9XXA Pedal cyclist (driver) (passenger) injured in unspecified traffic accident, initial encounter; Y93.55 Activity, bike riding
CPT/HCPCS: 99283

== ENCOUNTER 2023-04-23 16:39 | Emergency (ER) | payer OTHER ==
--- NOTE | 2023-04-23 17:59 | XR ---
EXAMINATION TYPE: XR toes LT DATE OF EXAM: 04/23/2023 COMPARISON: None HISTORY: Third toe pain and redness and swelling TECHNIQUE: 3 views left third digit FINDINGS: No acute osseous abnormality is evident. Joint spaces are preserved. Soft tissues appear no rmal. No radiopaque foreign bodies are evident. Follow-up can be performed as clinically indicated. IMPRESSION: 1. No acute osseous abnormality third digit left foot
[2023-04-23] MEDS ORDERED: KETOROLAC 15 MG/ML 1 ML VIAL IM STA (19:00)
[2023-04-23] MEDS ORDERED: DIPH,PERTUS(ACELL)TETVAC-LF 0.5 ML VIAL IM ONE (19:00)
[2023-04-23] MEDS ORDERED: CIPROFLOXACIN HCL 500 MG TAB PO STA (19:00)
--- NOTE | 2023-04-23 19:03 | ED ---
General Adult HPI - General Chief complaint: Skin/Abscess/Foreign Body Stated complaint: left foot swollen Time Seen by Provider: 04/23/23 18:39 Source: patient, RN notes reviewed, old records reviewed Mode of arrival: ambulatory Limitations: no limitations - History of Present Illness Initial comments: Patient is a 27 her old male with past medical history is unremarkable presents emergency Department complaining of a possible puncture wound to his left foot. He has been having swelling and pain at the left second and third digit. More the second digit at this time. States he opened it and there is some purulent discharge. Is open and is having discharge. Erythematous from the site. No fevers. No systemic signs of infection. Unknown last tetanus vaccine. Presents for antibiotics. Unknown what he may have stepped on. Has been present for numerous days. - Related Data Previous Rx's Medication Instructions Recorded Ciprofloxacin HCl [Cipro] 500 mg PO Q12HR 10 Days #20 tab 04/23/23 Allergies Allergy/AdvReac Type Severity Reaction Status Date / Time haloperidol [From Haldol] AdvReac Severe Extrapyramidal Verified 04/23/23 17:19 symptoms Review of Systems ROS Statement: Those systems with pertinent positive or pertinent negative responses have been documented in the HPI. Review of Systems: CONST: Denies fever EYES: Denies blurry vision ENT: Denies nasal congestion C/V: Denies Chest pain RESP: Denies shortness of breath GI: Denies abdominal pain : Denies dysuria SKIN: Endorses swelling, discharge of left second and third toes. Concern for infection. MSK: Denies joint pain. NEURO: Denies headache ROS Other: All systems not noted in ROS Statement are negative. Past Medical History Past Medical History: No Reported History History of Any Multi-Drug Resistant Organisms: None Reported Past Surgical History: Ear Surgery Additional Past Surgical History / Comment(s): tubes as adol. Past Anesthesia/Blood Transfusion Reactions: No Reported Reaction Past Psychological History: ADD/ADHD, Schizophrenia Smoking Status: Current every day smoker Past Alcohol Use History: None Reported Past Drug Use History: Marijuana, Methamphetamine General Exam - General Exam Comments Initial Comments: General: Appears in no acute distress. HEAD: Normal with no signs of head trauma. EYES: EOMI. ENT: Hearing grossly intact. RESPIRATORY: No respiratory distress. C/V: Regular rate and rhythm. ABD: Abdomen is nondistended. EXT: No obvious deformity. SKIN: Erythema of the second and third digits on the left foot. Normal range of motion. Actively draining slight purulent material. No underlying abscess palpated. Neurovascular intact. No obvious puncture wound NEURO: Alert and oriented. Limitations: no limitations Course Vital Signs 04/23/23 04/23/23 17:15 19:34 Temperature 98.6 F 97.9 F Pulse Rate 110 H 67 Respiratory 20 16 Rate Blood Pressure 185/74 132/72 O2 Sat by Pulse 99 96 Oximetry Medical Decision Making - Medical Decision Making Was pt. sent in by a medical professional or institution (, RONNI, ACCOUNTS EXECUTIVE, urgent care, hospital, or group home...) When possible be specific @ -No Did you speak to anyone other than the patient for history (EMS, parent, family, police, friend...)? What history was obtained from this source @ -No Did you review nursing and triage notes (agree or disagree)? Why? @ -I reviewed and agree with nursing and triage notes Were old charts reviewed (outside hosp., previous admission, EMS record, old EKG, old radiological studies, urgent care reports/EKG's, group home records)? Report findings @ -No old charts were reviewed Differential Diagnosis (chest pain, altered mental status, abdominal pain women, abdominal pain men, vaginal bleeding, weakness, fever, dyspnea, syncope, headache, dizziness, GI bleed, back pain, seizure, CVA, palpatations, mental health, musculoskeletal)? @ -Cellulitis, abscess, foot puncture wound, this list is not all-inclusive. EKG interpreted by me (3pts min.). @ -None done X-rays interpreted by me (1pt min.). @ -X-ray of the left foot is unremarkable. No obvious fracture. CT interpreted by me (1pt min.). @ -None done U/S interpreted by me (1pt. min.). @ -None done What testing was considered but not performed or refused? (CT, X-rays, U/S, labs)? Why? @ -None What meds were considered but not given or refused? Why? @ -None Did you discuss the management of the patient with other professionals (professionals i.e. RONNI Muñoz, ACCOUNTS EXECUTIVE, lab, RT, psych nurse, social worker school, cement storage worker, teacher, health promotion officer, ed case manager)? Give summary @ -No Was smoking cessation discussed for >3mins.? @ -No Was critical care preformed (if so, how long)? @ -No Were there social determinants of health that impacted care today? How? (Homelessness, low income, unemployed, alcoholism, drug addiction, transportation, low edu. Level, literacy, decrease access to med. care, [facility], rehab)? @ -No Was there de-escalation of care discussed even if they declined (Discuss DNR or withdrawal of care, Hospice)? DNR status @ -No What co-morbidities impacted this encounter? (DM, HTN, Smoking, COPD, CAD, Canc er, CVA, ARF, Chemo, Hep., AIDS, mental health diagnosis, sleep apnea, morbid obesity)? @ -None Was patient admitted / discharged? Hospital course, mention meds given and route, prescriptions, significant lab abnormalities, going to OR and other pertinent info. @ -Based on the patient's presentation and physical exam, presents over concern for possible infection to the left foot second toes. Exam is unremarkable. Vital signs unremarkable. Patient will be given Toradol for pain control, as well as a tetanus booster. He will also be started on ciprofloxacin due to concern for puncture wound cover for possible sialitis as well as pseudomonas infection. Patient was in agreement this plan. Recommended follow-up with his PCP. I will provide the patient with a prescription for ciprofloxacin. I instructed the patient to follow up with their PCP in the next 1-3 days. I explained that the patient should return to the emergency department if they experience any worsening symptoms. Strict return precautions were discussed with the patient. The patient expressed understanding of these instructions. I answered all que stions that the patient had. The patient was discharged home in good condition with their prescriptions and follow up information. Undiagnosed new problem with uncertain prognosis? @ -No Drug Therapy requiring intensive monitoring for toxicity (Heparin, Nitro, Insulin, Cardizem)? @ -No Were any procedures done? @ -No Diagnosis/symptom? @ -Cellulitis, possible puncture wound to the toe Acute, or Chronic, or Acute on Chronic? @ -Acute Uncomplicated (without systemic symptoms) or Complicated (systemic symptoms)? @ -Uncomplicated Side effects of treatment? @ -No Exacerbation, Progression, or Severe Exacerbation? @ -No Poses a threat to life or bodily function? How? (Chest pain, [place], [place], pneumonia, PE, COPD, DKA, ARF, appy, cholecystitis, CVA, Diverticulitis, Homicidal, Suicidal, threat to staff... and all critical care pts) @ -No Disposition Clinical Impression: Cellulitis Disposition: HOME SELF-CARE Condition: Good Instructions (If sedation given, give patient instructions): Cellulitis (ED) Prescriptions: Ciprofloxacin HCl [Cipro] 500 mg PO Q12HR 10 Days #20 tab Is patient prescribed a controlled substance at d/c from ED?: No Referrals: None,Stated [Primary Care Provider] - 1-2 days Time of Disposition: 19:00
[2023-04-23 19:38] VITALS: BP 132/72; PULSE 67; RESP 16; TEMP 97.9
== END 2023-04-23 19:37 | disposition home or self-care (01) ==
LOC: EC 16:39
DX: L03.012 Cellulitis of left finger (principal); F17.200 Nicotine dependence, unspecified, uncomplicated; F12.90 Cannabis use, unspecified, uncomplicated; F15.90 Other stimulant use, unspecified, uncomplicated; Z23 Encounter for immunization; Z88.8 Allergy status to other drugs, medicaments and biological substances
CPT/HCPCS: 73660; 90715; 99283; 96372; 90471; J1885

== ENCOUNTER 2023-05-16 18:50 | Emergency (ER) | payer OTHER ==
[2023-05-16 19:20] VITALS: RESP 20; TEMP 98.1
--- NOTE | 2023-05-16 20:06 | ED ---
Eye Problem HPI - General Chief complaint: Eye Problems Stated complaint: left eye swelling Source: patient Mode of arrival: ambulatory Limitations: no limitations - History of Present Illness Initial comments: 27-year-old male presents to ED with a chief complaint of left eye swelling. Patient states over the last week has started to develop some irritation and swelling over his left eye. States at first thought he had an eyelash stuck in his eye and was rubbing his eye. However increasing swelling and pain over the week. Due to swelling notes some decreased vision however denies any loss of vision. Denies drainage. Denies fever. Denies chest pain shortness of breath. No other complaints. - Related Data Previous Rx's Medication Instructions Recorded Ciprofloxacin HCl [Cipro] 500 mg PO Q12HR 10 Days #20 tab 04/23/23 Amoxic-Pot Clav 875-125Mg 1 tab PO Q12HR #20 tab 05/16/23 [Augmentin 875-125] Allergies Allergy/AdvReac Type Severity Reaction Status Date / Time haloperidol [From Haldol] AdvReac Severe Extrapyramidal Verified 05/16/23 19:20 symptoms Review of Systems ROS Statement: Those systems with pertinent positive or pertinent negative responses have been documented in the HPI. ROS Other: All systems not noted in ROS Statement are negative. Past Medical History Past Medical History: No Reported History History of Any Multi-Drug Resistant Organisms: None Reported Past Surgical History: Ear Surgery Additional Past Surgical History / Comment(s): tubes as adol. Past Anesthesia/Blood Transfusion Reactions: No Reported Reaction Past Psychological History: ADD/ADHD, Schizophrenia Smoking Status: Current every day smoker Past Alcohol Use History: None Reported Past Drug Use History: Marijuana, Methamphetamine General Exam Limitations: no limitations General appearance: alert, in no apparent distress Eye exam: Present: PERRL, EOMI, periorbital swelling, periorbital tenderness, other (Right orbital erythema. No proptosis. No entrapment upon performing extraocular motions.) Respiratory exam: Present: normal lung sounds bilaterally Cardiovascular Exam: Present: regular rate, normal rhythm GI/Abdominal exam: Present: soft Neurological exam: Present: alert, oriented X3 Skin exam: Present: warm, dry Course Vital Signs 05/16/23 19:16 Temperature 98.1 F Pulse Rate 88 Respiratory 20 Rate Blood Pressure 127/84 O2 Sat by Pulse 100 Oximetry Medical Decision Making - Medical Decision Making Was pt. sent in by a medical professional or institution (RONNI Muñoz, [facility] SKEIN WINDER, urgent care, hospital, or [facility]...) When possible be specific @ -No Did you speak to anyone other than the patient for history (EMS, parent, family, police, friend...)? What history was obtained from this source @ -No Did you review nursing and triage notes (agree or disagree)? Why? @ -I reviewed and agree with nursing and triage notes Were old charts reviewed (outside hosp., previous admission, EMS record, old EK G, old radiological studies, urgent care reports/EKG's, [facility] records)? Report findings @ -No old charts were reviewed Differential Diagnosis (chest pain, altered mental status, abdominal pain women, abdominal pain men, vaginal bleeding, weakness, fever, dyspnea, syncope, headache, dizziness, GI bleed, back pain, seizure, CVA, palpatations, mental health, musculoskeletal)? @ -Orbital cellulitis, preseptal cellulitis, orbital abscess. This is not meant to be an all-inclusive list. EKG interpreted by me (3pts min.). @ -None X-rays interpreted by me (1pt min.). @ -None done CT interpreted by me (1pt min.). @ -CT with contrast of the orbits was ordered in order to rule out orbital cellulitis/other condition/as abscess formation however patient refused testing. Additionally, she refuses other forms of testing such as checking for ocular pressure and fluorescein stain exam. U/S interpreted by me (1pt. min.). @ -None done What testing was considered but not performed or refused? (CT, X-rays, U/S, labs)? Why? @ -None What meds were considered but not given or refused? Why? @ -None Did you discuss the management of the patient with other professionals (professionals i.e. RONNI Muñoz, TEST SKEIN WINDER, lab, RT, psych nurse, health and social care teacher, strength and conditioning coach, teacher, chief medical officer, child welfare caseworker)? Give summary @ -No Was smoking cessation discussed for >3mins.? @ -No Was critical care preformed (if so, how long)? @ -No Were there social determinants of health that impacted care today? How? (Homelessness, low income, unemployed, alcoholism, drug addiction, transportation, low edu. Level, literacy, decrease access to med. care, half-way, rehab)? @ -No Was there de-escalation of care discussed even if they declined (Discuss DNR or withdrawal of care, Hospice)? DNR status @ -No What co-morbidities impacted this encounter? (DM, HTN, Smoking, COPD, CAD, Cancer, CVA, ARF, Chemo, Hep., AIDS, mental health diagnosis, sleep apnea, morbid obesity)? @ -None Was patient admitted / discharged? Hospital course, mention meds given and route, prescriptions, significant lab abnormalities, going to OR and other pertinent info. @ -Discharge. 27-year-old male presenting with left eye swelling and pain over the last week. Laboratory studies significant for an elevated white blood cell count 14.4. Patient refused computed tomography scan with IV contrast of the orbits. However, on exam no proptosis or entrapment/pain on extraocular motions. Patient does have reduced visual acuity of the left eye. Patient states that he would only like to receive oral antibiotics and to be discharged. Had lengthy discussion with patient about benefits of receiving additional testing. Patient understands and states that he was only like oral antibiotics. Provided prescription for Augmentin and TobraDex eyedrops. Discussed return precautions with patient verbalizes agreement. Undiagnosed new problem with uncertain prognosis? @ -No Drug Therapy requiring intensive monitoring for toxicity (Heparin, Nitro, Insulin, Cardizem)? @ -No Were any procedures done? @ -No Diagnosis/symptom? @ -Preseptal cellulitis Acute, or Chronic, or Acute on Chronic? @ -Acute Uncomplicated (without systemic symptoms) or Complicated (systemic symptoms)? @ -Uncomplicated Side effects of treatment? @ -No Exacerbation, Progression, or Severe Exacerbation? @ -No Poses a threat to life or bodily function? How? (Chest pain, [place], [place], pneumonia, PE, COPD, DKA, ARF, appy, cholecystitis, CVA, Diverticulitis, Homicidal, Suicidal, threat to staff... and all critical care pts) @ -No - Lab Data Result diagrams: 05/16/23 20:13 05/16/23 20:13 Lab Results 05/16/23 05/16/23 05/16/23 Range/Units 20:13 20:13 20:13 WBC 14.4 H (3.8-10.6) k/uL RBC 5.31 (4.30-5.90) m/uL Hgb 15.8 (13.0-17.5) gm/dL Hct 48.1 (39.0-53.0) % MCV 90.5 (80.0-100.0) fL MCH 29.8 (25.0-35.0) pg MCHC 32.9 (31.0-37.0) g/dL RDW 12.3 (11.5-15.5) % Plt Count 356 (150-450) k/uL MPV 7.6 Neutrophils % 80 % Lymphocytes % 13 % Monocytes % 5 % Eosinophils % 1 % Basophils % 0 % Neutrophils # 11.5 H (1.3-7.7) k/uL Lymphocytes # 1.8 (1.0-4.8) k/uL Monocytes # 0.7 (0-1.0) k/uL Eosinophils # 0.2 (0-0.7) k/uL Basophils # 0.1 (0-0.2) k/uL Sodium 140 (137-145) mmol/L Potassium 4.4 (3.5-5.1) mmol/L Chloride 103 (98-107) mmol/L Carbon Dioxide 25 (22-30) mmol/L Anion Gap 12 mmol/L BUN 20 (9-20) mg/dL Creatinine 1.02 (0.66-1.25) mg/dL Est GFR (CKD-EPI)AfAm >90 (>60 ml/min/1.73 sqM) Est GFR (CKD-EPI)NonAf >90 (>60 ml/min/1.73 sqM) Glucose 97 (74-99) mg/dL Plasma Lactic Acid Benny 0.8 (0.7-2.0) mmol/L Calcium 9.8 (8.4-10.2) mg/dL Total Bilirubin 0.6 (0.2-1.3) mg/dL AST 26 (17-59) U/L ALT 20 (4-49) U/L Alkaline Phosphatase 104 (38-126) U/L Total Protein 8.5 H (6.3-8.2) g/dL Albumin 4.8 (3.5-5.0) g/dL Disposition Clinical Impression: Preseptal cellulitis Disposition: HOME SELF-CARE Condition: Poor Instructions (If sedation given, give patient instructions): Periorbital Cellulitis in Adults (ED), Orbital Cellulitis (ED) Additional Instructions: Please return to the Emergency Department if symptoms worsen or any other concerns. Please returned if worsening infection or symptoms.. Prescriptions: Amoxic-Pot Clav 875-125Mg [Augmentin 875-125] 1 tab PO Q12HR #20 tab Is patient prescribed a controlled substance at d/c from ED?: No Referrals: None,Stated [Primary Care Provider] - 1-2 days Time of Disposition: 20:56
[2023-05-16 20:32] LABS: Basophils # (A) 0.1 k/uL (0-0.2); Basophils % (A) 0 %; Eosinophils # (A) 0.2 k/uL (0-0.7); Eosinophils % (A) 1 %; HCT 48.1 % (39.0-53.0); HGB 15.8 gm/dL (13.0-17.5); Lymphocytes # (A) 1.8 k/uL (1.0-4.8); Lymphocytes % (A) 13 %; MCH 29.8 pg (25.0-35.0); MCHC 32.9 g/dL (31.0-37.0); MCV 90.5 fL (80.0-100.0); Mean Platelet Volume 7.6; Monocytes # (A) 0.7 k/uL (0-1.0); Monocytes % (A) 5 %; Neutrophils # (A) 11.5 k/uL (1.3-7.7); Neutrophils % (A) 80 %; Platelet Count 356 k/uL (150-450); RBC 5.31 m/uL (4.30-5.90); RDW 12.3 % (11.5-15.5); WBC 14.4 k/uL (3.8-10.6)
[2023-05-16 20:45] LABS: ALT 20 U/L (4-49); AST 26 U/L (17-59); African American GFR (CKD) >90 (>60 ml/min/1.73 sqM); Albumin 4.8 g/dL (3.5-5.0); Alkaline Phosphatase 104 U/L (38-126); Anion Gap 12 mmol/L; Blood Urea Nitrogen 20 mg/dL (9-20); Calcium 9.8 mg/dL (8.4-10.2); Carbon Dioxide 25 mmol/L (22-30); Chloride 103 mmol/L (98-107); Glucose 97 mg/dL (74-99); Non-African American GFR(CKD) >90 (>60 ml/min/1.73 sqM); Potassium 4.4 mmol/L (3.5-5.1); Sodium 140 mmol/L (137-145); Total Bilirubin 0.6 mg/dL (0.2-1.3); Total Protein 8.5 g/dL (6.3-8.2)
[2023-05-16] MEDS ORDERED: AMOXIC-POT CLAV 875MG STARTER PACK 2 TAB BTL PO STA (20:47)
[2023-05-16] MEDS ORDERED: TOBRA-DEXAMET 0.3-0.1% OPHTH DROPS 2.5 ML BTL LEFT EYE SCH (21:00)
[2023-05-16 21:11] VITALS: BP 157/86; PULSE 112
== END 2023-05-16 21:10 | disposition home or self-care (01) ==
LOC: EC 18:50
DX: L03.213 Periorbital cellulitis (principal); F17.200 Nicotine dependence, unspecified, uncomplicated; F12.90 Cannabis use, unspecified, uncomplicated; Z88.8 Allergy status to other drugs, medicaments and biological substances
CPT/HCPCS: 36415; 80053; 83605; 85025; 99283

== ENCOUNTER 2023-07-10 09:43 | Emergency (ER) | payer OTHER ==
[2023-07-10 09:57] VITALS: RESP 18; TEMP 97.6
[2023-07-10] MEDS ORDERED: SODIUM CHLORIDE 0.9% 1,000 ML IV STA (10:35)
[2023-07-10] MEDS ORDERED: KETOROLAC 15 MG/ML 1 ML VIAL IVP STA (10:35)
--- NOTE | 2023-07-10 10:49 | ED ---
Skin/Abscess/FB HPI - General Chief complaint: Skin/Abscess/Foreign Body Stated complaint: infection Time Seen by Provider: 07/10/23 10:04 Source: patient, family, RN notes reviewed Mode of arrival: ambulatory Limitations: no limitations - History of Present Illness Initial comments: Patient is a 27 -year-old male presented ER with chief complaint of a an absecess on his right testicle. Patient states he noticed it about 72 hours ago. Patient states it is very painful to sit and walk. Patient was recently treated with Augmentin for a abscess near his eye. Patient admits to regularly smoking cigarettes but denies marijuana, illicit drug use. Patient denies being a diabetic, any urinary symptoms, STD exposure, abdominal pain, fevers, night sweats/chills. - Related Data Previous Rx's Medication Instructions Recorded Ciprofloxacin HCl [Cipro] 500 mg PO Q12HR 10 Days #20 tab 04/23/23 Amoxic-Pot Clav 875-125Mg 1 tab PO Q12HR #20 tab 05/16/23 [Augmentin 875-125] Cephalexin [Keflex] 500 mg PO Q6HR #40 cap 07/10/23 Sulfamethox-Tmp 800-160Mg [Bactrim 1 each PO Q12HR #20 tab 07/10/23 Ds] Allergies Allergy/AdvReac Type Severity Reaction Status Date / Time haloperidol [From Haldol] AdvReac Severe Extrapyramidal Verified 07/10/23 09:54 symptoms Review of Systems ROS Statement: Those systems with pertinent positive or pertinent negative responses have been documented in the HPI. ROS Other: All systems not noted in ROS Statement are negative. Past Medical History Past Medical History: No Reported History History of Any Multi-Drug Resistant Organisms: None Reported Past Surgical History: Ear Surgery Additional Past Surgical History / Comment(s): tubes as adol. Past Anesthesia/Blood Transfusion Reactions: No Reported Reaction Past Psychological History: ADD/ADHD, Schizophrenia Smoking Status: Current every day smoker Past Alcohol Use History: Occasional Past Drug Use History: Marijuana, Methamphetamine General Exam Limitations: no limitations General appearance: alert, in no apparent distress, anxious Respiratory exam: Present: normal lung sounds bilaterally. Absent: respiratory distress, wheezes, rales, rhonchi, stridor Cardiovascular Exam: Present: regular rate, normal rhythm, normal heart sounds GI/Abdominal exam: Present: soft, normal bowel sounds. Absent: distended, tend erness, guarding, rebound, rigid exam: Present: circumcision, other (abscess noted on right testicle about 2 inches in diameter. no overlying erythema or edema. induration of skin noted. No urethral discharge, redness or other lesions noted.) Course Vital Signs 07/10/23 07/10/23 09:50 14:48 Temperature 97.6 F Pulse Rate 108 H 110 H Respiratory 18 18 Rate Blood Pressure 141/88 146/88 O2 Sat by Pulse 98 95 Oximetry Medical Decision Making - Medical Decision Making Was pt. sent in by a medical professional or institution (, PA, LINUX UNIX ENGINEER, urgent care, hospital, or halfway...) When possible be specific @ -No Did you speak to anyone other than the patient for history (EMS, parent, family, police, friend...)? What history was obtained from this source @ -Family Did you review nursing and triage notes (agree or disagree)? Why? @ -I reviewed and agree with nursing and triage notes Were old charts reviewed (outside hosp., previous admission, EMS record, old EKG, old radiological studies, urgent care reports/EKG's, halfway records)? Report findings @ -No old charts were reviewed Differential Diagnosis (chest pain, altered mental status, abdominal pain women, abdominal pain men, vaginal bleeding, weakness, fever, dyspnea, syncope, headache, dizziness, GI bleed, back pain, seizure, CVA, palpatations, mental health, musculoskeletal)? @ -Scrotal abscess, scrotal mass, cellulitis, STD EKG interpreted by me (3pts min.). @ -None X-rays interpreted by me (1pt min.). @ -None done CT interpreted by me (1pt min.). @ -CT abdomen and pelvis shows bilateral inguinal lymphadenopathy. Fluid within the scrotal sac is not excluded. Mild diverticulosis without acute diverticulitis. U/S interpreted by me (1pt. min.). @ -Scrotal ultrasound shows a 4.4 cm hypoechoic collection in superior lateral to the testicle. What testing was considered but not performed or refused? (CT, X-rays, U/S, labs)? Why? @ -Lactic acid was ordered but patient refused. Patient also refused aspiration of abscess. What meds were considered but not given or refused? Why? @ -None Did you discuss the management of the patient with other professionals (professionals i.e. , PA, LINUX UNIX ENGINEER, lab, RT, psych nurse, social service director, apprentice painter brush, teacher, evp and chief operating officer, caser in)? Give summary @ -No Was smoking cessation discussed for >3mins.? @ -No Was critical care preformed (if so, how long)? @ -No Were there social determinants of health that impacted care today? How? (Homelessness, low income, unemployed, alcoholism, drug addiction, transportation, low edu. Level, literacy, decrease access to med. care, prison, rehab)? @ -No Was there de-escalation of care discussed even if they declined (Discuss DNR or withdrawal of care, Hospice)? DNR status @ -No What co-morbidities impacted this encounter? (DM, HTN, Smoking, COPD, CAD, Cancer, CVA, ARF, Chemo, Hep., AIDS, mental health diagnosis, sleep apnea, morbid obesity)? @ -None Was patient admitted / discharged? Hospital course, mention meds given and route , prescriptions, significant lab abnormalities, going to OR and other pertinent info. @ -[Discharged. Labs were significant for white blood cell count of 16.9. Scrotal ultrasound shows a 4.4 hypoechoic collection in the superior lateral to the testicle. CT abdomen and pelvis shows bilateral inguinal lymphadenopathy. Fluid in the scrotal sac is not excluded. Patient declined aspiration of abscess/mass. Patient will be discharged home in stable condition with a prescription for Bactrim and Keflex. Return parameters were discussed. Patient advised to follow up with urology as soon as possible. Patient expressed understanding. Undiagnosed new problem with uncertain prognosis? @ -No Drug Therapy requiring intensive monitoring for toxicity (Heparin, Nitro, Insulin, Cardizem)? @ -No Were any procedures done? @ -No Diagnosis/symptom? @ -Scrotal abscess/mass Acute, or Chronic, or Acute on Chronic? @ -Acute Uncomplicated (without systemic symptoms) or Complicated (systemic symptoms)? @ -Uncomplicated Side effects of treatment? @ -No Exacerbation, Progression, or Severe Exacerbation? @ -No Poses a threat to life or bodily function? How? (Chest pain, [place], [place], pneumonia, PE, COPD, DKA, ARF, appy, cholecystitis, CVA, Diverticulitis, Homicidal, S uicidal, threat to staff... and all critical care pts) @ -No - Lab Data Result diagrams: 07/10/23 10:58 07/10/23 10:58 Lab Results 07/10/23 07/10/23 07/10/23 Range/Units 10:58 10:58 10:58 WBC 16.9 H (3.8-10.6) k/uL RBC 5.03 (4.30-5.90) m/uL Hgb 15.2 (13.0-17.5) gm/dL Hct 44.3 (39.0-53.0) % MCV 88.1 (80.0-100.0) fL MCH 30.3 (25.0-35.0) pg MCHC 34.4 (31.0-37.0) g/dL RDW 11.8 (11.5-15.5) % Plt Count 359 (150-450) k/uL MPV 6.9 Neutrophils % 82 % Lymphocytes % 11 % Monocytes % 4 % Eosinophils % 2 % Basophils % 0 % Neutrophils # 13.9 H (1.3-7.7) k/uL Lymphocytes # 1.9 (1.0-4.8) k/uL Monocytes # 0.7 (0-1.0) k/uL Eosinophils # 0.3 (0-0.7) k/uL Basophils # 0.1 (0-0.2) k/uL Sodium 141 (137-145) mmol/L Potassium 4.6 (3.5-5.1) mmol/L Chloride 103 (98-107) mmol/L Carbon Dioxide 21 L (22-30) mmol/L Anion Gap 17 mmol/L BUN 11 (9-20) mg/dL Creatinine 0.80 (0.66-1.25) mg/dL Est GFR (CKD-EPI)AfAm >90 (>60 ml/min/1.73 sqM) Est GFR (CKD-EPI)NonAf >90 (>60 ml/min/1.73 sqM) Glucose 174 H (74-99) mg/dL Plasma Lactic Acid Benny (0.7-2.0) mmol/L Calcium 9.3 (8.4-10.2) mg/dL Total Bilirubin 0.6 (0.2-1.3) mg/dL AST 33 (17-59) U/L ALT 20 (4-49) U/L Alkaline Phosphatase 95 (38-126) U/L Total Protein 8.2 (6.3-8.2) g/dL Albumin 4.4 (3.5-5.0) g/dL Urine Color Colorless Urine Appearance Clear (Clear) Urine pH 6.0 (5.0-8.0) Ur Specific Randolph 1.003 (1.001-1.035) Urine Protein Negative (Negative) Urine Glucose (UA) Negative (Negative) Urine Ketones Negative (Negative) Urine Blood Negative (Negative) Urine Nitrite Negative (Negative) Urine Bilirubin Negative (Negative) Urine Urobilinogen <2.0 (<2.0) mg/dL Ur Leukocyte Esterase Negative (Negative) 07/10/23 Range/Units 12:55 WBC (3.8-10.6) k/uL RBC (4.30-5.90) m/uL Hgb (13.0-17.5) gm/dL Hct (39.0-53.0) % MCV (80.0-100.0) fL MCH (25.0-35.0) pg MCHC (31.0-37.0) g/dL RDW (11.5-15.5) % Plt Count (150-450) k/uL MPV Neutrophils % % Lymphocytes % % Monocytes % % Eosinophils % % Basophils % % Neutrophils # (1.3-7.7) k/uL Lymphocytes # (1.0-4.8) k/uL Monocytes # (0-1.0) k/uL Eosinophils # (0-0.7) k/uL Basophils # (0-0.2) k/uL Sodium (137-145) mmol/L Potassium (3.5-5.1) mmol/L Chloride (98-107) mmol/L Carbon Dioxide (22-30) mmol/L Anion Gap mmol/L BUN (9-20) mg/dL Creatinine (0.66-1.25) mg/dL Est GFR (CKD-EPI)AfAm (>60 ml/min/1.73 sqM) Est GFR (CKD-EPI)NonAf (>60 ml/min/1.73 sqM) Glucose (74-99) mg/dL Plasma Lactic Acid Benny 2.0 (0.7-2.0) mmol/L Calcium (8.4-10.2) mg/dL Total Bilirubin (0.2-1.3) mg/dL AST (17-59) U/L ALT (4-49) U/L Alkaline Phosphatase (38-126) U/L Total Protein (6.3-8.2) g/dL Albumin (3.5-5.0) g/dL Urine Color Urine Appearance (Clear) Urine pH (5.0-8.0) Ur Specific Randolph (1.001-1.035) Urine Protein (Negative) Urine Glucose (UA) (Negative) Urine Ketones (Negative) Urine Blood (Negative) Urine Nitrite (Negative) Urine Bilirubin (Negative) Urine Urobilinogen (<2.0) mg/dL Ur Leukocyte Esterase (Negative) - Radiology Data Radiology results: report reviewed, image reviewed Disposition Clinical Impression: Scrotal abscess Disposition: HOME SELF-CARE Condition: Stable Instructions (If sedation given, give patient instructions): Abscess (ED) Additional Instructions: Please return to the Emergency Department if symptoms worsen or any other concerns. Please follow-up with urology and complete full course of antibiotics. Prescriptions: Sulfamethox-Tmp 800-160Mg [Bactrim Ds] 1 each PO Q12HR #20 tab Cephalexin [Keflex] 500 mg PO Q6HR #40 cap Is patient prescribed a controlled substance at d/c from ED?: No Referrals: None,Stated [Primary Care Provider] - 1-2 days Del Sampson MD [STAFF PHYSICIAN] - 1-2 days Time of Disposition: 14:49
[2023-07-10 11:18] LABS: Basophils # (A) 0.1 k/uL (0-0.2); Basophils % (A) 0 %; Eosinophils # (A) 0.3 k/uL (0-0.7); Eosinophils % (A) 2 %; HCT 44.3 % (39.0-53.0); HGB 15.2 gm/dL (13.0-17.5); Lymphocytes # (A) 1.9 k/uL (1.0-4.8); Lymphocytes % (A) 11 %; MCH 30.3 pg (25.0-35.0); MCHC 34.4 g/dL (31.0-37.0); MCV 88.1 fL (80.0-100.0); Mean Platelet Volume 6.9; Monocytes # (A) 0.7 k/uL (0-1.0); Monocytes % (A) 4 %; Neutrophils # (A) 13.9 k/uL (1.3-7.7); Neutrophils % (A) 82 %; Platelet Count 359 k/uL (150-450); RBC 5.03 m/uL (4.30-5.90); RDW 11.8 % (11.5-15.5); WBC 16.9 k/uL (3.8-10.6)
[2023-07-10 11:30] LABS: Appearance,Urine Clear (Clear); Bilirubin,Urine Negative (Negative); Blood,Urine Negative (Negative); Color,Urine Colorless; Glucose,Urine (UA) Negative (Negative); Ketones,Urine Negative (Negative); Leukocyte Esterase,Urine Negative (Negative); Nitrite,Urine Negative (Negative); Protein,Urine Negative (Negative); Specific Gravity,Urine 1.003 (1.001-1.035); Urobilinogen,Urine <2.0 mg/dL (<2.0)
[2023-07-10 11:41] LABS: ALT 20 U/L (4-49); AST 33 U/L (17-59); African American GFR (CKD) >90 (>60 ml/min/1.73 sqM); Albumin 4.4 g/dL (3.5-5.0); Alkaline Phosphatase 95 U/L (38-126); Anion Gap 17 mmol/L; Blood Urea Nitrogen 11 mg/dL (9-20); Calcium 9.3 mg/dL (8.4-10.2); Carbon Dioxide 21 mmol/L (22-30); Chloride 103 mmol/L (98-107); Glucose 174 mg/dL (74-99); Non-African American GFR(CKD) >90 (>60 ml/min/1.73 sqM); Sodium 141 mmol/L (137-145); Total Bilirubin 0.6 mg/dL (0.2-1.3); Total Protein 8.2 g/dL (6.3-8.2)
[2023-07-10 11:42] LABS: Potassium 4.6 mmol/L (3.5-5.1)
--- NOTE | 2023-07-10 13:14 | CT ---
EXAMINATION TYPE: CT abdomen pelvis w con DATE OF EXAM: 07/10/2023 COMPARISON: None INDICATION: Scrotal abscess DLP: 1191 mGycm, Automated exposure control for dose reduction was used. CONTRAST: 0 mL of Isovue 300. Study performed without Oral Contrast TECHNIQUE: Axial images were obtained from above the diaphragm to the pubic rami in the axial plane a t 5 mm thick sections. Reconstructed images are reviewed on the computer in the coronal plane. FINDINGS: Limited CT sections are obtained the lung bases. The lung bases are clear. CT ABDOMEN: Liver: Normal Spleen: Normal Pancreas: Normal Adrenal glands: The adrenal glands are normal. Gallbladder: Normal Kidneys: No masses are evident. No hydronephrosis is present. No cysts are present. Delayed images were obtained through the kidneys, which remain unremarkable. Aorta: Normal Inferior vena cava: Normal. CT PELVIS: Scattered lymph nodes are in the inguinal regions bilaterally. No definite peritoneal infl ammatory changes. Fluid collection within the scrotal sac is not excluded. Loops of bowel within the abdomen and pelvis are normal. This study is without oral contrast limi ting bowel evaluation. Few diverticuli may be within the sigmoid colon. Appendix: Normal as visualized. Urinary bladder: Normal. Genitourinary structures: Prostate is normal. No suspicious subcutaneous emphysematous changes Osseous structures: No suspicious lytic or sclerotic lesions. IMPRESSION: 1. Scattered lymphadenopathy within the inguinal regions bilaterally. 2. Suspicious abscess collection within the peritoneum is not identified. 3. Fluid within the scrotal sac is not excluded. 4. Mild diverticulosis without acute diverticulitis.
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
[2023-07-10 14:59] VITALS: BP 146/88; PULSE 110
== END 2023-07-10 14:54 | disposition home or self-care (01) ==
LOC: EC 09:43
DX: N49.2 Inflammatory disorders of scrotum (principal); F17.210 Nicotine dependence, cigarettes, uncomplicated; F12.90 Cannabis use, unspecified, uncomplicated; Z88.8 Allergy status to other drugs, medicaments and biological substances
CPT/HCPCS: 36415; 80053; 83605; 85025; 81003; 93975; 76870; 74177; 99284; 96374; 96361; J1885; Q9967

== ENCOUNTER 2024-08-28 02:25 | Emergency (ER) | payer OTHER ==
[2024-08-28 02:32] VITALS: PULSE 75
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
[2024-08-28] MEDS: ACETAMINOPHEN TAB 500 MG TAB PO STA (02:48)
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
[2024-08-28] MEDS: IBUPROFEN 600 MG STARTER PACK 4 TAB BTL PO STA (06:50)
[2024-08-28] MEDS: traMADol 50 MG STARTER PACK 3 TAB BTL PO STA (06:50)
[2024-08-28 06:59] VITALS: BP 127/69; RESP 16; TEMP 98.2
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
== END 2024-08-28 07:01 | disposition home or self-care (01) ==
LOC: EC 02:25
DX: M54.6 Pain in thoracic spine (principal); M54.2 Cervicalgia; F17.200 Nicotine dependence, unspecified, uncomplicated; Z88.8 Allergy status to other drugs, medicaments and biological substances; V49.40XA Driver injured in collision with unspecified motor vehicles in traffic accident, initial encounter; Y92.410 Unspecified street and highway as the place of occurrence of the external cause
CPT/HCPCS: 70450; 72070; 72125; 99284